=== PATIENT | male | born 1995 | race Caucasian/White ===

== ENCOUNTER 2017-12-31 19:55 | Observation (INO) ==
--- NOTE | 2017-12-31 20:38 | ED ---
HPI General Chief complaint: Headache Stated complaint: flu symp Time Seen by Provider: 12/31/17 20:06 History of Present Illness HPI narrative: 22-year-old male here with his girlfriend for evaluation of fever , headache, neck pain. Symptoms have been going on for about 3 days and has been gradually worsening. He reports that he took a leftover pain pill from previous hand surgery and currently has no pain. He states that earlier today his pain was 7 out of 10, describes a diffuse headache that is sharp, radiates down to his neck into his lower back. This is made worse with neck movements and is associated with photophobia. He was nauseous and had a couple episodes of vomiting yesterday. No cough. Denies IVDU. Related Data Home Medications Medication Instructions Recorded Confirmed amoxicillin-pot clavulanate 1 tab PO Q12H 12/31/17 12/31/17 [Augmentin] Allergies Allergy/AdvReac Type Severity Reaction Status Date / Time No Known Allergies Allergy Verified 12/31/17 20:16 Review of Systems ROS: all other systems reviewed are negative [facility] Medical History Medical History Finger fracture, left (Acute) Social History Social History Substance History: No History of Abuse and Past History Smoking Status: Light tobacco smoker Tobacco Type: Cigarettes How Often Do You Have a Drink Containing Alcohol: Monthly or less Recent Travel in [facility] within the Last 8 Weeks: No Recent Out of Country Travel within the Last 8 Weeks: No Immunization History Tetanus Immunization: <5 Years Tetanus Immunization Year if Known: 2014 Hx Influenza Vaccine This Season: No Exam Narrative Exam Narrative: GENERAL: Well-developed, well-nourished, awake, alert, keeps eyes closed, no apparent distress. SKIN: Focused skin assessment warm/dry. No rash. HEAD: Atraumatic. Normocephalic. EYES: Pupils equal, round, 3 mm, reactive to light. EOMI. No scleral icterus. No injection or drainage. ENT: No nasal bleeding or discharge. Mucous membranes pink and dry. NECK: Trachea midline. No JVD. No nuchal rigidity, however turning head from side to side causes pain. CARDIOVASCULAR: Regular rate and rhythm. No murmur appreciated. RESPIRATORY: No accessory muscle use. Clear to auscultation. Breath sounds equal bilaterally. GASTROINTESTINAL: Abdomen soft, non-tender, nondistended. Hepatic and splenic margins not palpable. MUSCULOSKELETAL: No obvious deformities. No clubbing. No cyanosis. No edema. NEUROLOGICAL: Awake and alert. No obvious cranial nerve deficits. Motor grossly within normal limits. Normal speech. PSYCHIATRIC: Appropriate mood and affect; insight and judgment normal. Procedures Lumbar Puncture Time Out Performed: Yes Patient Position: left lateral decubitus Skin Prep: Povidone-Iodine 1% Local anesthetic used: Lidocaine 1% Amount of anesthesia used (mL): 3 Spinal Needle Gauge: 20G Interspace Used: L4-L5 Opening Pressure (cmH20): 9 Fluid Initially Obtained: clear Complications: none Course Initial Documented Vital Signs Temperature 100.3 F H 12/31/17 19:57 Pulse Rate 90 12/31/17 19:57 Respiratory Rate 16 12/31/17 19:57 Blood Pressure 117/79 12/31/17 19:57 Pulse Oximetry 99 12/31/17 19:57 Last Documented Vital Signs Temperature 100.3 F H 12/31/17 19:57 Pulse Rate 90 12/31/17 20:12 Respiratory Rate 16 12/31/17 20:12 Blood Pressure 119/71 12/31/17 20:12 Pulse Oximetry 99 12/31/17 20:12 Medical Decision Making MDM Narrative Medical decision making narrative: Vital signs reviewed and show that the patient has a temp of 100.3 F. CBC and CMP are essentially unremarkable. Influenza is negative. Group A strep is negative. CT head shows no acute intracranial abnormality. Chest x-ray shows no acute disease. This is a 22-year-old male who presents with headache, fever, neck pain and stiffness that radiates down his entire spine. He adamantly denies IV drug use or history of. He does not have any respiratory symptoms and I do not have a clear source for his fever. Given fever of unknown origin with headache and neck pain/stiffness, I discussed with the patient and the patient's family that meningitis/encephalitis is on the differential diagnosis. Patient was consented for lumbar puncture and this was performed without complication. CSF is clear with an opening pressure of 9 mm of water. Samples of the CSF were sent to the lab for analysis. He was empirically started on Rocephin, vancomycin, and acyclovir and will be admitted for further treatment and evaluation. Case discussed with hospitalist Dr. Conley who will admit the patient to the hospitalist service. Medical Screen Exam Complete: Yes Emergency Medical Condition: Yes Differential Diagnosis Differential Diagnosis: Meningitis, encephalitis, flu/flulike illness, intracranial abnormality Lab Data Result diagrams: 12/31/17 20:30 12/31/17 20:30 Lab Results 12/31/17 12/31/17 12/31/17 Range/Units 20:30 20:30 20:30 WBC 6.0 (4.0-11.0) th/mm3 RBC 4.98 (4.50-5.90) mil/mm3 Hgb 16.0 (13.0-17.0) gm/dL Hct 45.2 (39.0-51.0) % MCV 90.8 (80.0-100.0) fL MCH 32.1 (27.0-34.0) pg MCHC 35.3 (32.0-36.0) % RDW 12.0 (11.6-17.2) % Plt Count 173 (150-450) th/mm3 MPV 9.1 (7.0-11.0) fL Neut % (Auto) 59.7 (16.0-70.0) % Lymph % (Auto) 26.9 (9.0-44.0) % [place] % (Auto) 12.6 H (0.0-8.0) % Eos % (Auto) 0.2 (0.0-4.0) % Baso % (Auto) 0.6 (0.0-2.0) % Neut # (Auto) 3.6 (1.8-7.7) th/mm3 Lymph # (Auto) 1.6 (1.0-4.8) th/mm3 [place] # (Auto) 0.8 (0.0-0.9) th/mm3 Eos # (Auto) 0.0 (0.0-0.4) th/mm3 Baso # (Auto) 0.0 (0.0-0.2) th/mm3 WBC Differential . Differential Comment Auto diff final PT 11.4 (9.8-11.6) sec INR 1.1 Ratio APTT 31.5 H (24.3-30.1) sec Sodium 137 (136-145) meq/L Potassium 3.7 (3.5-5.1) meq/L Chloride 101 (98-107) meq/L Carbon Dioxide 26.0 (21.0-32.0) meq/L Anion Gap 10 (5-15) meq/L BUN 10 (7-18) mg/dL Creatinine 1.08 (0.60-1.30) mg/dL Estimated GFR 84 L (>89) mL/min Random Glucose 104 (74-106) mg/dL Calcium 8.5 (8.5-10.1) mg/dL Total Bilirubin 0.4 (0.2-1.0) mg/dL AST 20 (15-37) U/L ALT 18 (12-78) U/L Alkaline Phosphatase 53 (45-117) U/L Total Protein 7.4 (6.4-8.2) g/dL Albumin 3.8 (3.4-5.0) g/dL Imaging Data Radiologist's impression: Chest X-Ray 12/31/17 20:12 CONCLUSION: No evidence of acute cardiopulmonary disease. Head CT 12/31/17 20:12 CONCLUSION: 1. Unremarkable noncontrast head CT. . Discharge Plan Discharge Disposition Patient Disposition: 30 Still Patient Discharge Condition Condition: Stable Discharge Details Diagnosis: Fever of unknown origin (FUO), Headache Physicians Team ED Provider: Hieu Molina Primary Care Provider: Primary Care JamesiKaren Rxs /Orders / Referrals /Forms Prescriptions: No Action amoxicillin-pot clavulanate [Augmentin] 875-125 mg Tablet 1 tab PO Q12H RF: 0 Status ED Status: Admitted Observation Patient
--- NOTE | 2017-12-31 20:44 | XR ---
EXAM DATE: 12/31/2017 8:12 PM EDT AGE/SEX: 22 years / Male INDICATIONS: Fever. CLINICAL DATA: This is the patient's initial encounter. Patient reports that signs and symptoms have been present for 2 days and indicates a pain score of 0/10. MEDICAL/SURGICAL HISTORY: None. None. COMPARISON: No prior exams available for comparison. FINDINGS: A single AP view of the chest demonstrates the lungs to be symmetrically aerated without evidence of mass, infiltrate or effusion. The cardiomediastinal contours are unremarkable. Osseous structures a re intact. CONCLUSION: No evidence of acute cardiopulmonary disease. Electronically signed by: Filiberto Pickens MD 12/31/2017 8:43 PM EDT
[2017-12-31 20:45] LABS: Baso % (Auto) 0.6 % (0.0-2.0); Eos % (Auto) 0.2 % (0.0-4.0); Hematocrit 45.2 % (39.0-51.0); Lymph # (Auto) 1.6 th/mm3 (1.0-4.8); Lymph % (Auto) 26.9 % (9.0-44.0); Mean Corpuscular HGB Conc 35.3 % (32.0-36.0); Mean Corpuscular Hemoglobin 32.1 pg (27.0-34.0); Mean Corpuscular Volume 90.8 fL (80.0-100.0); Mean Platelet Volume 9.1 fL (7.0-11.0); Mono # (Auto) 0.8 th/mm3 (0.0-0.9); Mono % (Auto) 12.6 % (0.0-8.0); Neut # (Auto) 3.6 th/mm3 (1.8-7.7); Neut % (Auto) 59.7 % (16.0-70.0); Platelet Count 173 th/mm3 (150-450); Red Blood Count 4.98 mil/mm3 (4.50-5.90)
--- NOTE | 2017-12-31 20:50 | CT ---
EXAM DATE: 12/31/2017 8:20 PM EDT AGE/SEX: 22 years / Male INDICATIONS: Headache. Neck and back pain. CLINICAL DATA: This is the patient's initial encounter. Patient reports that signs and symptoms have been present for 2 days and indicates a pain score of 4/10. MEDICAL/SURGICAL HISTORY: None. None. RADIATION DOSE: 56.35 CTDI (mGy) COMPARISON: No prior exams available for comparison. TECHNIQUE: CT of the head without contrast. Using automated exposure control and adjustment of the mA and/or kV according to patient size, radiation dose was kept as low as reasonably achievable to ob tain optimal diagnostic quality images. DICOM format image data is available electronically for revi ew and comparison. FINDINGS: Cerebrum: The ventricles are normal for age. No evidence of midline shift, mass lesion, hemorrhage or acute infarction. No extraaxial fluid collections are seen. Posterior Fossa: The cerebellum and brainstem are intact. The 4th ventricle is midline. The cerebe llopontine angle is unremarkable. Extracranial: The visualized portion of the orbits is intact. Skull: The calvaria is intact. No evidence of skull fracture. CONCLUSION: 1. Unremarkable noncontrast head CT. . Electronically signed by: Keith Wiggins MD 12/31/2017 8:48 PM EDT
[2017-12-31 20:57] LABS: Activated Partial Thrombo Time 31.5 sec (24.3-30.1); INR 1.1 Ratio; Prothrombin Time 11.4 sec (9.8-11.6)
[2017-12-31 21:07] LABS: Albumin 3.8 g/dL (3.4-5.0); Anion Gap 10 meq/L (5-15); Aspartate Aminotransferase 20 U/L (15-37); Blood Urea Nitrogen 10 mg/dL (7-18); Calcium 8.5 mg/dL (8.5-10.1); Chloride 101 meq/L (98-107); Glomerular Filtration Rate 84 mL/min (>89); Glucose,Random 104 mg/dL (74-106); Potassium 3.7 meq/L (3.5-5.1); Sodium 137 meq/L (136-145)
[2017-12-31] MEDS ORDERED: Morphine Inj 4 MG/ML Vial IV.PUSH ONE (21:12)
[2017-12-31 21:13] LABS: Alanine Aminotransferase 18 U/L (12-78); Alkaline Phosphatase 53 U/L (45-117); Total Protein 7.4 g/dL (6.4-8.2)
[2017-12-31] MEDS ORDERED: SODIUM CHLOR 0.9% IV.SIG ONE (21:58)
[2017-12-31] MEDS ORDERED: ACYCLOVIR IV.SIG ONE (21:58)
[2017-12-31] MEDS ORDERED: Ketorolac Inj 30 MG/ML (IVP) Vial IV.PUSH ONE (21:58)
[2017-12-31] MEDS ORDERED: Sod Chloride 0.9% Inj 1,000 ML IV.SIG SCH (22:00)
[2017-12-31] MEDS ORDERED: Vancomycin Inj 1 GM/200 ML PIGGYBACK IV.SIG SCH (22:00)
[2017-12-31 23:24] LABS: Total Protein,CSF 44.2 mg/dL (15.0-45.0)
[2017-12-31] MEDS ORDERED: Vancomycin Consult Pharmacy OTHER PRN (23:31)
[2017-12-31] MEDS ORDERED: Acetaminophen 325 MG Tablet PO PRN (23:32)
[2017-12-31] MEDS ORDERED: Bisacodyl 10 MG Supp RECTAL PRN (23:32)
--- NOTE | 2017-12-31 23:37 | P.HP ---
History of Present Illness Service: [facility] Primary Care Physician: No Primary Care Physician History of Present Illness: 22-year-old male with no significant past medical history presents to the emergency department for evaluation of headache, neck stiffness, and fever/ chills. The patient reports his symptoms started on Thursday and have progressively worsened. He complains of pain all over his spine and an exquisitely stiff neck that hurts to turn to the side or talk. He had a fever earlier today of 100.0. He denies any visual changes. Reports one episode of emesis last night. No chest pain or shortness of breath. No abdominal pain. Review of Systems All other systems reviewed negative except as stated in HPI PMFSH - History History Provided By: Patient - Medical History Medical History: Medical History (Last Reviewed 12/31/17 @ 23:34 by Rosalinda Conley MD) Finger fracture, left - Surgical History Surgical History: Surgical History (Last Updated 12/31/17 @ 23:35 by Rosalinda Conley MD) Status post wrist surgery - Family History Family History: Family History (Last Updated 12/31/17 @ 23:35 by Rosalinda Conley MD) Other Family history normal - Tobacco History Tobacco Use In Past 30 Days: Yes Smoking Status: Light tobacco smoker Tobacco Type: Cigarettes - Alcohol History How Often Do You Have a Drink Containing Alcohol: Monthly or less - Substance Use History Substance History: No History of Abuse, Past History - Travel History Recent Travel in the [place] Within the Last 8 Weeks: No Recent Travel Out of the Country Within the Last 8 Weeks: No - Immunization History Tetanus Immunization: <5 Years Tetanus Immunization Year if Known: 2014 Hx Influenza Vaccine This Season: No Medications and Allergies Active Medications: Active Medications Sodium Chloride (Ns Inj) 1,000 mls @ 0 mls/hr IV.SIG BOLUS KATHIA Last Admin: 12/31/17 22:21 Dose: 999 mls/hr Vancomycin/Sodium Chloride (Vancomycin Inj) 1 gm in 200 mls @ 200 mls/hr IV.SIG MEDICAL IMAGING SPECIALIST KATHIA Sodium Chloride (Ns Flush) 2 ml IV.FLUSH PRN PRN PRN Reason: FLUSH AFTER USING IV ACCESS Allergies Allergy/AdvReac Type Severity Reaction Status Date / Time No Known Allergies Allergy Verified 12/31/17 20:16 Home Medications Medication Instructions Recorded Confirmed Type amoxicillin-pot clavulanate 1 tab PO Q12H 12/31/17 12/31/17 History [Augmentin] Exam Vital signs: Vital Signs 12/31/17 19:57 12/31/17 20:12 12/31/17 22:51 Temperature 100.3 F H Pulse Rate 90 90 Respiratory Rate 16 16 20 Blood Pressure 117/79 119/71 Pulse Oximetry 99 99 12/31/17 22:52 Temperature Pulse Rate Respiratory Rate 20 Blood Pressure Pulse Oximetry Intake & Output 12/31/17 12/31/17 01/01/18 06:59 18:59 06:59 Intake Total 100 / 100 Balance 100 / 100 Weight 63.503 kg Intake: IV 100 / 100 Rocephin Inj 1,000 MG In NS Inj 100 / 100 100 ML @ 200 mls/hr IV.SIG ONCE ONE Rx#:[id number] Narrative: Gen.: No acute distress Head: Normocephalic. Atraumatic. EENT: Pupils equal round and reactive to light. Nose without drainage. Airway intact. Throat without injection. Positive nuchal rigidity. Cardiovascular: Regular rate and rhythm. No murmurs, rubs or gallops. Respiratory: Lungs clear to auscultation bilaterally. No wheezes or rhonchi. Abdomen: Soft, nontender, nondistended. No peritoneal signs. Musculoskeletal: No gross deformities. No edema. Skin: No obvious rashes or erythema. Neuro: Sensory and motor grossly intact. Cranial nerves II through XII grossly intact. Results - Labs CBC & Chem 7: 12/31/17 20:30 12/31/17 20:30 Labs: Laboratory Results - last 24 hr 12/31/17 12/31/17 12/31/17 20:30 20:30 20:30 WBC 6.0 RBC 4.98 Hgb 16.0 Hct 45.2 MCV 90.8 MCH 32.1 MCHC 35.3 RDW 12.0 Plt Count 173 MPV 9.1 Neut % (Auto) 59.7 Lymph % (Auto) 26.9 [place] % (Auto) 12.6 H Eos % (Auto) 0.2 Baso % (Auto) 0.6 Neut # (Auto) 3.6 Lymph # (Auto) 1.6 [place] # (Auto) 0.8 Eos # (Auto) 0.0 Baso # (Auto) 0.0 WBC Differential . Differential Comment Auto diff final PT 11.4 INR 1.1 APTT 31.5 H Sodium 137 Potassium 3.7 Chloride 101 Carbon Dioxide 26.0 Anion Gap 10 BUN 10 Creatinine 1.08 Estimated GFR 84 L Random Glucose 104 Calcium 8.5 Total Bilirubin 0.4 AST 20 ALT 18 Alkaline Phosphatase 53 Total Protein 7.4 Albumin 3.8 CSF Chloride CSF Glucose CSF Lactic Acid CSF Total Protein 12/31/17 12/31/17 12/31/17 22:30 22:30 22:30 WBC RBC Hgb Hct MCV MCH MCHC RDW Plt Count MPV Neut % (Auto) Lymph % (Auto) [place] % (Auto) Eos % (Auto) Baso % (Auto) Neut # (Auto) Lymph # (Auto) [place] # (Auto) Eos # (Auto) Baso # (Auto) WBC Differential Differential Comment PT INR APTT Sodium Potassium Chloride Carbon Dioxide Anion Gap BUN Creatinine Estimated GFR Random Glucose Calcium Total Bilirubin AST ALT Alkaline Phosphatase Total Protein Albumin CSF Chloride Cancelled 122 CSF Glucose 62 CSF Lactic Acid 1.5 Cancelled CSF Total Protein 44.2 - Imaging Impressions Chest X-Ray 12/31/17 20:12 CONCLUSION: No evidence of acute cardiopulmonary disease. Head CT 12/31/17 20:12 CONCLUSION: 1. Unremarkable noncontrast head CT. . Caprini VTE Risk Assessment Caprini VTE Risk Assessment: No/Low Risk (score <= 1) Caprini Risk Assessment Model: Point Value = 1 Point Value = 2 Point Value = 3 Point Value = 5 Age 41-60 Minor surgery BMI > 25 kg/m2 Swollen legs Varicose veins or History of unexplained or recurrent spontaneous Oral contraceptives or hormone replacement Sepsis (< 1 month) Serious lung disease, including pneumonia (< 1 month) Abnormal pulmonary function Acute myocardial infarction Congestive heart failure (< 1 month) History of inflammatory bowel disease Medical patient at bed rest Age 61-74 Arthroscopic surgery Major open surgery (> 45 min) Laparoscopic surgery (> 45 min) Malignancy Confined to bed (> 72 hours) Immobilizing plaster cast Central venous access Age >= 75 History of VTE Family history of VTE Factor V Leiden Prothrombin [id number] Lupus anticoagulant Anticardiolipin antibodies Elevated serum homocysteine Heparin-induced thrombocytopenia Other congenital or acquired thrombophilia Stroke (< 1 month) Elective arthroplasty Hip, pelvis, or leg fracture Acute spinal cord injury (< 1 month) Prophylaxis Regimen: Total Risk Factor Score Risk Level Prophylaxis Regimen 0-1 Low Early ambulation 2 Moderate Order ONE of the following: *Sequential Compression Device (SCD) *Heparin 5000 units SQ BID 3-4 Higher Order ONE of the following medications: *Heparin 5000 units SQ TID *Enoxaparin/Lovenox 40 mg SQ daily (WT < 150 kg, CrCl > 30 mL/min) *Enoxaparin/Lovenox 30 mg SQ daily (WT < 150 kg, CrCl > 10-29 mL/min) *Enoxaparin/Lovenox 30 mg SQ BID (WT < 150 kg, CrCl > 30 mL/min) AND/OR *Sequential Compression Device (SCD) 5 or more Highest Order ONE of the following medications: *Heparin 5000 units SQ TID (Preferred with Epidurals) *Enoxaparin/Lovenox 40 mg SQ daily (WT < 150 kg, CrCl > 30 mL/min) *Enoxaparin/Lovenox 30 mg SQ daily (WT < 150 kg, CrCl > 10-29 mL/min) *Enoxaparin/Lovenox 30 mg SQ BID (WT < 150 kg, CrCl > 30 mL/min) AND *Sequential Compression Device (SCD) Assessment and Plan - Plan Assessment/plan: 1. Headache/nuchal rigidity Concern for meningitis LP pending Vancomycin/Rocephin/acyclovir Morphine for pain FEN Regular diet Electrolytes: As needed NS at 100 cc/hour
[2017-12-31] MEDS: Sod Chloride 0.9% Inj 1,000 ML IV.CONT SCH (23:42)
[2017-12-31 23:45] LABS: RBC on Tube 1 120 /mm3
[2017-12-31 23:46] LABS: Lymphocytes, CSF 73 %; Monocytes,CSF 27 %; Neutrophils,CSF 0 %; RBC on Tube 4 69 /mm3
[2018-01-01] MEDS ORDERED: Vancomycin Inj 1,250 MG in Sodium Chlor 0.9% Inj 250 ML IV.SIG SCH (01:00)
[2018-01-01] MEDS ORDERED: ACYCLOVIR IV.SIG ONE (07:00)
[2018-01-01] MEDS ORDERED: SODIUM CHLOR 0.9% IV.SIG ONE (07:00)
[2018-01-01 08:07] LABS: Anion Gap 8 meq/L (5-15); Blood Urea Nitrogen 11 mg/dL (7-18); Calcium 7.8 mg/dL (8.5-10.1); Carbon Dioxide 25.9 meq/L (21.0-32.0); Chloride 107 meq/L (98-107); Glomerular Filtration Rate Greater Than 89 mL/min (>89); Glucose,Random 79 mg/dL (74-106); Potassium 3.8 meq/L (3.5-5.1); Sodium 141 meq/L (136-145)
[2018-01-01 08:17] LABS: Baso % (Auto) 0.7 % (0.0-2.0); Eos % (Auto) 0.5 % (0.0-4.0); Hematocrit 38.6 % (39.0-51.0); Lymph # (Auto) 1.5 th/mm3 (1.0-4.8); Lymph % (Auto) 26.1 % (9.0-44.0); Mean Corpuscular Hemoglobin 32.8 pg (27.0-34.0); Mean Corpuscular Volume 90.5 fL (80.0-100.0); Mean Platelet Volume 9.8 fL (7.0-11.0); Mono # (Auto) 0.8 th/mm3 (0.0-0.9); Mono % (Auto) 14.7 % (0.0-8.0); Neut # (Auto) 3.2 th/mm3 (1.8-7.7); Platelet Count 159 th/mm3 (150-450); Red Blood Count 4.27 mil/mm3 (4.50-5.90); White Blood Count 5.6 th/mm3 (4.0-11.0)
[2018-01-01 08:20] LABS: Mean Corpuscular HGB Conc 36.3 % (32.0-36.0)
[2018-01-01] MEDS: Sod Chloride 0.9% Inj 1,000 ML IV.CONT SCH ×3 (08:33→20:20)
[2018-01-01] MEDS: Senna/Docusate Sodium 8.6/50 MG Tablet PO SCH ×2 (08:33→21:20)
[2018-01-01 09:26] LABS: Monocytes 10 % (0-8)
[2018-01-01 09:27] LABS: Lymphocytes 28 % (9-44); Platelet Estimate Normal (Normal); Platelet Morphology Normal (Normal)
--- NOTE | 2018-01-01 09:51 | P.PN ---
Subjective Interval history: Follow-up for headache, neck pain, body aches, concern for meningitis. Patient reports mild improvement compared to yesterday, however still with mild diffuse global headache, and neck tightness, with some pain at lumbar puncture injection site. He denies any fevers or chills overnight although he does feel warm. Denies any chest pain, cough, or shortness of breath. He reports a mild sore throat, improving. Denies any abdominal pain, nausea/vomiting, or diarrhea. He has no other medical complaints at this time. Denies any sick contacts. Denies any recent travel. Physical Exam Vital signs: Vital Signs 12/31/17 19:57 12/31/17 20:12 12/31/17 22:51 Temperature 100.3 F H Pulse Rate 90 90 Respiratory Rate 16 16 20 Blood Pressure 117/79 119/71 Pulse Oximetry 99 99 12/31/17 22:52 01/01/18 00:00 01/01/18 04:00 Temperature 98.7 F 98.5 F Pulse Rate 88 73 Respiratory Rate 20 20 16 Blood Pressure 136/72 105/58 L Pulse Oximetry 99 01/01/18 08:00 Temperature 98.1 F Pulse Rate 71 Respiratory Rate 22 Blood Pressure 106/57 L Pulse Oximetry 98 Intake & Output 12/31/17 01/01/18 01/01/18 18:59 06:59 18:59 Intake Total 1472.5 / 1472.5 1012.7 / 1012.7 Balance 1472.5 / 1472.5 1012.7 / 1012.7 Weight 63.503 kg Intake: IV 1472.5 / 1472.5 1012.7 / 1012.7 NS Inj 1,000 ML @ 100 mls/hr IV 900 / 900 .CONT .Q10H [facility] Rx#:[id number] Zovirax Inj 635 MG In NS Inj 110 / 110 112.7 / 112.7 100 ML @ 112.7 mls/hr IV.SIG ONCE ONE Rx#:[id number] NS Inj 1,000 ML @ Wide Open IV. 1000 / 1000 SIG BOLUS [facility] Rx#:[id number] Vancomycin Inj 1,250 MG In NS 262.5 / 262.5 Inj 250 ML @ 250 mls/hr IV.SIG DAILY@0100 [facility] Rx#:[id number] Rocephin Inj 1,000 MG In NS Inj 100 / 100 100 ML @ 200 mls/hr IV.SIG ONCE ONE Rx#:[id number] Other: # Voids 0 Narrative: GENERAL: Well-nourished, well-developed patient in [facility]. SKIN: Warm and dry. No rash. HEENT: Normocephalic. Atraumatic. Pupils equal and round. Mucous membranes pink and moist. NECK: Cervical paraspinous muscles slightly tender to palpation, with positive Brudzinski's and nuchal rigidity. CARDIOVASCULAR: Regular rate and rhythm. No murmur appreciated. RESPIRATORY: No accessory muscle use. Clear to auscultation. Breath sounds equal bilaterally. GASTROINTESTINAL: Abdomen soft, non-tender, nondistended. Normoactive bowel sounds x4. MUSCULOSKELETAL: No obvious deformities. Extremities without clubbing, cyanosis , or edema. NEUROLOGICAL: Awake and alert. No obvious cranial nerve deficits. Motor grossly within normal limits. Moving all extremities spontaneously. Normal speech. PSYCHIATRIC: Appropriate mood and affect; insight and judgment normal. Results - Labs CBC & Chem 7: 01/01/18 06:14 01/01/18 06:14 Laboratory Results - last 24 hr 12/31/17 12/31/17 12/31/17 20:30 20:30 20:30 WBC 6.0 RBC 4.98 Hgb 16.0 Hct 45.2 MCV 90.8 MCH 32.1 MCHC 35.3 RDW 12.0 Plt Count 173 MPV 9.1 Prelim Diff (Auto) Neut % (Auto) 59.7 Lymph % (Auto) 26.9 [place] % (Auto) 12.6 H Eos % (Auto) 0.2 Baso % (Auto) 0.6 Neut # (Auto) 3.6 Lymph # (Auto) 1.6 [place] # (Auto) 0.8 Eos # (Auto) 0.0 Baso # (Auto) 0.0 WBC Differential . Seg Neuts % (Manual) Band Neuts % (Manual) Lymphocytes % (Manual) Monocytes % (Manual) Abs Neuts (Manual) Differential Comment Auto diff final Platelet Estimate Platelet Morphology PT 11.4 INR 1.1 APTT 31.5 H Sodium 137 Potassium 3.7 Chloride 101 Carbon Dioxide 26.0 Anion Gap 10 BUN 10 Creatinine 1.08 Estimated GFR 84 L Random Glucose 104 Calcium 8.5 Total Bilirubin 0.4 AST 20 ALT 18 Alkaline Phosphatase 53 Total Protein 7.4 Albumin 3.8 CSF Volume (1) CSF Supernat Color (1) CSF Gross Blood (1) CSF WBC (1) CSF RBC (1) CSF Volume (2) CSF Supernat Color (2) CSF Gross Blood (2) CSF Volume (3) CSF Supernat Color (3) CSF Gross Blood (3) CSF Volume (4) CSF Supernat Color (4) CSF Gross Blood (4) CSF WBC (4) CSF RBC (4) CSF Neutrophils % CSF Lymphocytes % CSF Monocytes % CSF Chloride CSF Glucose CSF Lactic Acid CSF Total Protein CSF N.mening B/E.coli K1 CSF N.meningitidis A/Y Bacterial Ag Source H.influenzae Type B Ag N. meningitidis C/W 135 Group B Strep Antigen S. pneumoniae Antigen 12/31/17 12/31/17 12/31/17 22:30 22:30 22:30 WBC RBC Hgb Hct MCV MCH MCHC RDW Plt Count MPV Prelim Diff (Auto) Neut % (Auto) Lymph % (Auto) [place] % (Auto) Eos % (Auto) Baso % (Auto) Neut # (Auto) Lymph # (Auto) [place] # (Auto) Eos # (Auto) Baso # (Auto) WBC Differential Seg Neuts % (Manual) Band Neuts % (Manual) Lymphocytes % (Manual) Monocytes % (Manual) Abs Neuts (Manual) Differential Comment Platelet Estimate Platelet Morphology PT INR APTT Sodium Potassium Chloride Carbon Dioxide Anion Gap BUN Creatinine Estimated GFR Random Glucose Calcium Total Bilirubin AST ALT Alkaline Phosphatase Total Protein Albumin CSF Volume (1) 1.1 CSF Supernat Color (1) Clear CSF Gross Blood (1) Trace A CSF WBC (1) 9 CSF RBC (1) 120 H CSF Volume (2) 0.8 CSF Supernat Color (2) Clear CSF Gross Blood (2) Trace A CSF Volume (3) 0.7 CSF Supernat Color (3) Clear CSF Gross Blood (3) Trace A CSF Volume (4) 0.9 CSF Supernat Color (4) Clear CSF Gross Blood (4) Trace A CSF WBC (4) 9 CSF RBC (4) 69 H CSF Neutrophils % 0 CSF Lymphocytes % 73 CSF Monocytes % 27 CSF Chloride Cancelled CSF Glucose CSF Lactic Acid CSF Total Protein CSF N.mening B/E.coli K1 Cancelled CSF N.meningitidis A/Y Cancelled Bacterial Ag Source Cancelled H.influenzae Type B Ag Cancelled N. meningitidis C/W 135 Cancelled Group B Strep Antigen Cancelled S. pneumoniae Antigen Cancelled 12/31/17 12/31/17 01/01/18 22:30 22:30 06:14 WBC 5.6 RBC 4.27 L Hgb 14.0 D Hct 38.6 L MCV 90.5 MCH 32.8 MCHC 36.3 H RDW 12.0 Plt Count 159 MPV 9.8 Prelim Diff (Auto) Slide review pending Neut % (Auto) 58.0 Lymph % (Auto) 26.1 [place] % (Auto) 14.7 H Eos % (Auto) 0.5 Baso % (Auto) 0.7 Neut # (Auto) 3.2 Lymph # (Auto) 1.5 [place] # (Auto) 0.8 Eos # (Auto) 0.0 Baso # (Auto) 0.0 WBC Differential Manual diff final Seg Neuts % (Manual) 39 Band Neuts % (Manual) 23 H Lymphocytes % (Manual) 28 Monocytes % (Manual) 10 H Abs Neuts (Manual) 3.5 Differential Comment . Platelet Estimate Normal Platelet Morphology Normal PT INR APTT Sodium Potassium Chloride Carbon Dioxide Anion Gap BUN Creatinine Estimated GFR Random Glucose Calcium Total Bilirubin AST ALT Alkaline Phosphatase Total Protein Albumin CSF Volume (1) CSF Supernat Color (1) CSF Gross Blood (1) CSF WBC (1) CSF RBC (1) CSF Volume (2) CSF Supernat Color (2) CSF Gross Blood (2) CSF Volume (3) CSF Supernat Color (3) CSF Gross Blood (3) CSF Volume (4) CSF Supernat Color (4) CSF Gross Blood (4) CSF WBC (4) CSF RBC (4) CSF Neutrophils % CSF Lymphocytes % CSF Monocytes % CSF Chloride 122 CSF Glucose 62 CSF Lactic Acid 1.5 Cancelled CSF Total Protein 44.2 CSF N.mening B/E.coli K1 CSF N.meningitidis A/Y Bacterial Ag Source H.influenzae Type B Ag N. meningitidis C/W 135 Group B Strep Antigen S. pneumoniae Antigen 01/01/18 06:14 WBC RBC Hgb Hct MCV MCH MCHC RDW Plt Count MPV Prelim Diff (Auto) Neut % (Auto) Lymph % (Auto) [place] % (Auto) Eos % (Auto) Baso % (Auto) Neut # (Auto) Lymph # (Auto) [place] # (Auto) Eos # (Auto) Baso # (Auto) WBC Differential Seg Neuts % (Manual) Band Neuts % (Manual) Lymphocytes % (Manual) Monocytes % (Manual) Abs Neuts (Manual) Differential Comment Platelet Estimate Platelet Morphology PT INR APTT Sodium 141 Potassium 3.8 Chloride 107 Carbon Dioxide 25.9 Anion Gap 8 BUN 11 Creatinine 1.00 Estimated GFR Greater than 89 Random Glucose 79 Calcium 7.8 L Total Bilirubin AST ALT Alkaline Phosphatase Total Protein Albumin CSF Volume (1) CSF Supernat Color (1) CSF Gross Blood (1) CSF WBC (1) CSF RBC (1) CSF Volume (2) CSF Supernat Color (2) CSF Gross Blood (2) CSF Volume (3) CSF Supernat Color (3) CSF Gross Blood (3) CSF Volume (4) CSF Supernat Color (4) CSF Gross Blood (4) CSF WBC (4) CSF RBC (4) CSF Neutrophils % CSF Lymphocytes % CSF Monocytes % CSF Chloride CSF Glucose CSF Lactic Acid CSF Total Protein CSF N.mening B/E.coli K1 CSF N.meningitidis A/Y Bacterial Ag Source H.influenzae Type B Ag N. meningitidis C/W 135 Group B Strep Antigen S. pneumoniae Antigen Microbiology 12/31/17 22:30 Lumbar Puncture Gram Stain - Final 12/31/17 22:30 Lumbar Puncture CSF Culture - Preliminary No growth. 12/31/17 20:30 Throat Group A Streptococcus Screen ([facility]) - Final 12/31/17 20:30 Nasal Wash Influenza Types A,B Antigen - Final Negative for FLU A and B antigen Infection due to influenza A or B cannot be ruled out since the antigen present in the sample may be below the detection limit of the test. - Imaging Impressions Chest X-Ray 12/31/17 20:12 CONCLUSION: No evidence of acute cardiopulmonary disease. Head CT 12/31/17 20:12 CONCLUSION: 1. Unremarkable noncontrast head CT. . - Procedures 12/31/17lumbar puncture performed by ER physician Assessment and Plan - Plan 22-year-old male with no significant past medical history presents to the emergency department for evaluation of headache, neck stiffness, and fever/ chills. Headache/nuchal rigidity/body aches/fevers: Concern for meningitis -Head CT 12/31 reviewed and unremarkable -Status post lumbar puncture in the ED 12/31 -CSF studies so far are unremarkable, await cultures -Continue empiric IV Rocephin/vancomycin/acyclovir -Blood cultures with no growth so far -Strep screen and influenza negative -Supportive treatment with IVF, antiemetics, IV morphine as needed -Monitor CBC -Check CPK and CRP DVT prophylaxis: Teds/SCDs; avoid chemical prophylaxis with recent LP Discharge Planning: Await CSF and blood cultures. Discharge pending further clinical improvement.
[2018-01-01] MEDS: Morphine Inj 4 MG/ML Vial IV.PUSH PRN (09:57)
[2018-01-01] MEDS: Vancomycin Inj 1,250 MG in Sodium Chlor 0.9% Inj 250 ML IV.SIG SCH (12:40)
[2018-01-01] MEDS: ACYCLOVIR IV.SIG SCH (17:24)
[2018-01-01] MEDS: SODIUM CHLOR 0.9% IV.SIG SCH (17:24)
[2018-01-01 17:43] LABS: C-Reactive Protein 8.3 mg/dL (0.00-0.30)
[2018-01-02] MEDS: Vancomycin Inj 1,250 MG in Sodium Chlor 0.9% Inj 250 ML IV.SIG SCH ×4 (01:34→23:40)
[2018-01-02] MEDS: SODIUM CHLOR 0.9% IV.SIG SCH ×3 (03:44→19:24)
[2018-01-02] MEDS: ACYCLOVIR IV.SIG SCH ×3 (03:44→19:24)
[2018-01-02] MEDS: Sod Chloride 0.9% Inj 1,000 ML IV.CONT SCH ×2 (07:46→17:01)
[2018-01-02] MEDS: Senna/Docusate Sodium 8.6/50 MG Tablet PO SCH ×2 (08:32→21:28)
[2018-01-02 08:46] LABS: Baso % (Auto) 0.9 % (0.0-2.0); Eos # (Auto) 0.2 th/mm3 (0.0-0.4); Eos % (Auto) 3.3 % (0.0-4.0); Hematocrit 40.8 % (39.0-51.0); Hemoglobin 14.2 gm/dL (13.0-17.0); Lymph # (Auto) 1.2 th/mm3 (1.0-4.8); Lymph % (Auto) 25.5 % (9.0-44.0); Mean Corpuscular HGB Conc 34.7 % (32.0-36.0); Mean Corpuscular Volume 92.1 fL (80.0-100.0); Mean Platelet Volume 8.9 fL (7.0-11.0); Mono # (Auto) 0.6 th/mm3 (0.0-0.9); Mono % (Auto) 11.8 % (0.0-8.0); Neut # (Auto) 2.8 th/mm3 (1.8-7.7); Neut % (Auto) 58.5 % (16.0-70.0); Platelet Count 180 th/mm3 (150-450); Red Blood Count 4.43 mil/mm3 (4.50-5.90); Red Cell Distribution Width 12.2 % (11.6-17.2); White Blood Count 4.8 th/mm3 (4.0-11.0)
[2018-01-02 09:28] LABS: Anion Gap 11 meq/L (5-15); Blood Urea Nitrogen 7 mg/dL (7-18); Carbon Dioxide 24.9 meq/L (21.0-32.0); Chloride 107 meq/L (98-107); Glomerular Filtration Rate Greater Than 89 mL/min (>89); Glucose,Random 72 mg/dL (74-106); Potassium 3.8 meq/L (3.5-5.1); Sodium 143 meq/L (136-145)
--- NOTE | 2018-01-02 09:58 | P.PN ---
Subjective Interval history: Follow-up for headache, neck/back pain, body aches, concern for meningitis. Patient reports feeling much better today. He states his headache has resolved. He states his neck is still a little sore and stiff. He also reports mid back pain on the spine without radiation. He denies any fevers or chills. He is tolerating oral intake. Denies any nausea/vomiting, abdominal pain, or diarrhea. He has been ambulating without difficulty. Denies any urinary/bowel incontinence. He wants to go home. Discussed with his mother at bedside. Physical Exam Vital signs: Vital Signs 01/01/18 12:00 01/01/18 16:00 01/01/18 19:33 Temperature 98.2 F 98.6 F 99.4 F Pulse Rate 62 73 79 Respiratory Rate 22 20 18 Blood Pressure 116/58 L 113/63 117/61 Pulse Oximetry 96 99 97 01/02/18 00:00 01/02/18 04:41 01/02/18 07:55 Temperature 98.6 F 98.7 F 98.3 F Pulse Rate 68 81 73 Respiratory Rate 16 16 16 Blood Pressure 114/59 L 129/86 115/58 L Pulse Oximetry 98 97 99 Intake & Output 01/01/18 01/02/18 01/02/18 18:59 06:59 18:59 Intake Total 2495.4 / 2495.4 2655.2 / 2655.2 Balance 2495.4 / 2495.4 2655.2 / 2655.2 Weight 63.503 kg Intake: IV 1775.4 / 1775.4 2175.2 / 2175.2 NS Inj 1,000 ML @ 100 mls/hr IV 1200 / 1200 1700 / 1700 .CONT .Q10H [facility] Rx#:[id number] Zovirax Inj 635 MG In NS Inj 225.4 / 225.4 112.7 / 112.7 100 ML @ 112.7 mls/hr IV.SIG Q8H [facility] Rx#:[id number] Vancomycin Inj 1,250 MG In NS 250 / 250 262.5 / 262.5 Inj 250 ML @ 250 mls/hr IV.SIG Q12H [facility] Rx#:[id number] Rocephin Inj 2,000 MG In NS Inj 100 / 100 100 / 100 100 ML @ 200 mls/hr IV.SIG Q12H [facility] Rx#:[id number] Oral 720 / 720 480 / 480 Other: # Voids 2 1 Date of Last Bowel Movement 12/31/17 01/01/18 01/01/18 Narrative: GENERAL: Well-nourished, well-developed young male patient in [facility]. SKIN: Warm and dry. No rash. HEENT: Normocephalic. Atraumatic. Pupils equal and round. Mucous membranes pink and moist. NECK: Cervical paraspinous muscles slightly tender to palpation, with +nuchal rigidity, overall improved. CARDIOVASCULAR: Regular rate and rhythm. No murmur appreciated. RESPIRATORY: No accessory muscle use. Clear to auscultation. Breath sounds equal bilaterally. GASTROINTESTINAL: Abdomen soft, non-tender, nondistended. Normoactive bowel sounds x4. MUSCULOSKELETAL: No obvious deformities. Extremities without clubbing, cyanosis , or edema. Lower thoracic/upper lumbar region approximately 6 inches above lumbar puncture site with bony point tenderness to palpation, paraspinous muscles nontender, no overlying erythema/edema. NEUROLOGICAL: Awake and alert. No obvious cranial nerve deficits. Motor grossly within normal limits. Moving all extremities spontaneously. Normal speech. PSYCHIATRIC: Appropriate mood and affect; insight and judgment normal. Results - Labs CBC & Chem 7: 01/02/18 08:35 01/02/18 08:35 Laboratory Results - last 24 hr 01/01/18 01/02/18 01/02/18 06:14 08:35 08:35 WBC 4.8 RBC 4.43 L Hgb 14.2 Hct 40.8 MCV 92.1 MCH 32.0 MCHC 34.7 RDW 12.2 Plt Count 180 MPV 8.9 Neut % (Auto) 58.5 Lymph % (Auto) 25.5 [place] % (Auto) 11.8 H Eos % (Auto) 3.3 Baso % (Auto) 0.9 Neut # (Auto) 2.8 Lymph # (Auto) 1.2 [place] # (Auto) 0.6 Eos # (Auto) 0.2 Baso # (Auto) 0.0 WBC Differential . Differential Comment Auto diff final Sodium 143 Potassium 3.8 Chloride 107 Carbon Dioxide 24.9 Anion Gap 11 BUN 7 Creatinine 0.90 Estimated GFR Greater than 89 Random Glucose 72 L Calcium 8.0 L Total Creatine Kinase 76 C-Reactive Protein 8.30 H Microbiology 12/31/17 22:30 Lumbar Puncture Gram Stain - Final 12/31/17 22:30 Lumbar Puncture CSF Culture - Preliminary No growth in 24 hours 12/31/17 22:30 Cerebral Spinal Fluid - Lumbar Puncture Acid Fast Bacilli Smear - Final No acid fast bacilli seen 12/31/17 22:30 Cerebral Spinal Fluid - Lumbar Puncture Fungal Smear - Final No fungal elements seen 12/31/17 20:30 Throat Group A Streptococcus Screen/Cult - Preliminary No Beta Streptococci isolated at 24 hours 12/31/17 22:00 Blood - Peripheral Aerobic Blood Culture - Preliminary No growth in 1 day 12/31/17 22:00 Blood - Peripheral Anaerobic Blood Culture - Preliminary No growth in 1 day 12/31/17 22:05 Blood - Peripheral Aerobic Blood Culture - Preliminary No growth in 1 day 12/31/17 22:05 Blood - Peripheral Anaerobic Blood Culture - Preliminary No growth in 1 day - Imaging Chest X-Ray 12/31/17 20:12 CONCLUSION: No evidence of acute cardiopulmonary disease. Head CT 12/31/17 20:12 CONCLUSION: 1. Unremarkable noncontrast head CT. . - Procedures 12/31/17lumbar puncture performed by ER physician Assessment and Plan - Plan 22-year-old male with no significant past medical history presents to the emergency department for evaluation of headache, neck stiffness, and fever/ chills. Headache/nuchal rigidity/body aches/fevers: Concern for meningitis -Head CT 12/31 reviewed and unremarkable -Status post lumbar puncture in the ED 12/31 -CSF studies/cultures so far are unremarkable -Continue empiric IV Rocephin/vancomycin/acyclovir -Blood cultures with no growth so far -Strep screen and influenza negative -Supportive treatment with IVF, antiemetics, IV morphine as needed -Monitor CBC -CPK wnl and CRP mildly elevated at 8.3 -Patient with bony point tenderness at lower thoracic/upper lumbar region, will check thoracic/lumbar spine MRI -Patient has remained afebrile, CBC improved, no signs of sepsis, symptoms much improved -1300hrs update: Thoracic/Lumbar spine MRI showed Enlargement of the epidural space with enhancement and heterogeneity raising the possibility of phlegmon is change. Inflammatory/infectious etiologies could be considered. Meningitis could be considered. No focal abscess is seen. -Will consult infectious disease DVT prophylaxis: Teds/SCDs; avoid chemical prophylaxis with recent LP Discharge Planning: Await infectious disease evaluation.
[2018-01-02] MEDS ORDERED: Pharmacy Ordered Lab Info OTHER ONE (11:45)
--- NOTE | 2018-01-02 13:05 | MR ---
EXAM DATE: 01/02/2018 10:58 AM EDT AGE/SEX: 22 years / Male INDICATIONS: Abscess. Fever with spinal tenderness. CLINICAL DATA: This is the patient's initial encounter. Patient reports that signs and symptoms have been present for 2 days and indicates a pain score of 4/10. MEDICAL/SURGICAL HISTORY: None. . Wrist surgery. COMPARISON: . TECHNIQUE: Multiplanar, multisequence MRI examination of the lumbar spine was performed without and with 6cc ml Gadavist (gadobutrol) contrast as a single exam dose. FINDINGS: The most caudal-appearing lumbar vertebra is numbered as L5. Vertebra: Homogeneous signal. Normal alignment. Conus: Normal level and configuration. The epidural space, especially posteriorly, appears prominent throughout the thoracic and lumbar spine. It appears somewhat heterogeneous. It demonstrates diffuse enhancement. A focal fluid collection/abscess in the epidural space is not seen. The disc. Moderate narrowing of the thecal sac throughout the lumbar spine secondary to the process of the epidural spac e. T12-L1: The thecal sac has a normal diameter. No evidence of disc bulge or protrusion. The neural foramina are patent bilaterally. L1-L2: The thecal sac has a normal diameter. No evidence of disc bulge or protrusion. The neural foramina are patent bilaterally. L2-L3: The thecal sac has a normal diameter. No evidence of disc bulge or protrusion. The neural foramina are patent bilaterally. L3-L4: The thecal sac has a normal diameter. No evidence of disc bulge or protrusion. The neural foramina are patent bilaterally. L4-L5: The thecal sac has a normal diameter. No evidence of disc bulge or protrusion. The neural foramina are patent bilaterally. L5-S1: The thecal sac has a normal diameter. No evidence of disc bulge or protrusion. The neural foramina are patent bilaterally. CONCLUSION: 1. Prominence of the epidural space throughout the thoracic and lumbar spine. It appears heterogeneo us. Given the patient's history, one could consider phlegmonous change without an abscess in the epid ural space. There appears to be moderate narrowing of the thecal sac throughout the lumbar spine seco ndary to the prominence of the epidural space. 2. The disc spaces appear normal. The bony structures appear normal. Electronically signed by: Filiberto Villarreal MD 01/02/2018 1:03 PM EDT
--- NOTE | 2018-01-02 13:17 | MR ---
EXAM DATE: 01/02/2018 10:58 AM EDT AGE/SEX: 22 years / Male INDICATIONS: Abscess. Fever with spinal tenderness. CLINICAL DATA: This is the patient's initial encounter. Patient reports that signs and symptoms have been present for 3 days and indicates a pain score of 3/10. MEDICAL/SURGICAL HISTORY: None. . Wrist surgery. COMPARISON: . TECHNIQUE: Multiplanar, multisequence MRI of the thoracic spine was performed without and with 6cc m l Gadavist (gadobutrol) contrast as a single exam dose. FINDINGS: Vertebrae: Normal vertebral body height. Homogeneous marrow signal. Alignment: Normal. Cord: Normal position and configuration.The cord appears normal. The epidural space especially poste riorly appears prominent throughout the thoracic spine. It appears somewhat heterogeneous. It demonst rates diffuse enhancement. A focal fluid collection/abscess in the epidural space is not seen T1-T2: The thecal sac has a normal diameter. No evidence of disc bulge or protrusion. T2-T3: The thecal sac has a normal diameter. No evidence of disc bulge or protrusion. T3-T4: The thecal sac has a normal diameter. No evidence of disc bulge or protrusion. T4-T5: The thecal sac has a normal diameter. No evidence of disc bulge or protrusion. T5-T6: The thecal sac has a normal diameter. No evidence of disc bulge or protrusion. T6-T7: The thecal sac has a normal diameter. No evidence of disc bulge or protrusion. T7-T8: The thecal sac has a normal diameter. No evidence of disc bulge or protrusion. T8-T9: The thecal sac has a normal diameter. No evidence of disc bulge or protrusion. T9-T10: The thecal sac has a normal diameter. No evidence of disc bulge or protrusion. T10-T11: The thecal sac has a normal diameter. No evidence of disc bulge or protrusion. T11-T12: The thecal sac has a normal diameter. No evidence of disc bulge or protrusion. T12-L1: The thecal sac has a normal diameter. No evidence of disc bulge or protrusion. CONCLUSION: 1. Enlargement of the epidural space with enhancement and heterogeneity raising the possibility of p hlegmon is change. Inflammatory/infectious etiologies could be considered. Meningitis could be consid ered. No focal abscess is seen. 2. The disc and vertebral bodies appear normal. Electronically signed by: Filiberto Villarreal MD 01/02/2018 1:16 PM EDT
[2018-01-02] MEDS: Morphine Inj 4 MG/ML Vial IV.PUSH PRN ×2 (13:38→18:56)
[2018-01-02] MEDS ORDERED: Gadobutrol PF 7.5 MMOL/7.5 ML Vial (for RAD) IV.SIG ONE (13:45)
--- NOTE | 2018-01-02 18:06 | P.CONID ---
History of Present Illness Service: ID Consult date: 01/02/18 Requesting Physician: Pennie Demarco Reason for Consult: headache/neck/back pain with fevers, thoracic/lumbar MRI shows enlargement Primary Care Provider: No Primary Care Physician Family Provider: No Primary Care Physician History of Present Illness: 22 yo male w/o past med history developped fever, neck/back pain sice Thursday progressively worse, + sore throat No siclk contacts Sp LP @ ER ([facility]) on 12/31 with ( WBC (lymphs) and increased RBC Today he woke up with new lumbar back ain MR showed enlargement of the epidural space with enhancement and heterogeneity , concern for infection/meningitis Pt rates pain 10/06 and it has not changed No weakness/ numbness in BLE, ambulates w/o issues Culture neg @ 24 hrs Fever resolved, MEYERS resolved and o/w he feels fine Pt is on Ceftriaxone Acyclovir and Vancomycin Review of Systems All other systems reviewed negative except as stated in HPI PMFSH - History History Provided By: Patient - Medical History Medical History: Medical History (Last Reviewed 01/02/18 @ 18:01 by Jyothi Llanos MD) Finger fracture, left - Surgical History Surgical History: Surgical History (Last Reviewed 01/02/18 @ 18:01 by Jyothi Llanos MD) Status post wrist surgery - Family History Family History: Family History (Last Reviewed 01/02/18 @ 18:01 by Jyothi Llanos MD) Other Family history normal - Social History I have reviewed the patient's Social History: Yes - Tobacco History Tobacco Use In Past 30 Days: Yes Smoking Status: Light tobacco smoker Tobacco Type: Cigarettes - Alcohol History How Often Do You Have a Drink Containing Alcohol: Monthly or less - Substance Use History Substance History: No History of Abuse, Past History - Travel History Recent Travel in the [place] Within the Last 8 Weeks: No Recent Travel Out of the Country Within the Last 8 Weeks: No - Immunization History Tetanus Immunization: <5 Years Tetanus Immunization Year if Known: 2014 Hx Influenza Vaccine This Season: No Medications and Allergies Active Medications: Active Medications Acetaminophen (Tylenol) 650 mg PO Q4H PRN PRN Reason: Temp > 100.4 Last Admin: 01/01/18 08:34 Dose: 650 mg Al Hydroxide/Mg Hydroxide (Milk Of Magnesia Liq) 30 ml PO Q12H PRN PRN Reason: Mild Constipation Bisacodyl (Dulcolax Supp) 10 mg RECTAL DAILY PRN PRN Reason: SEVERE CONSITIPATION Ceftriaxone Sodium 2,000 mg/ (Sodium Chloride) 100 mls @ 200 mls/hr IV.SIG Q12H [facility] Last Infusion: 01/02/18 14:50 Dose: Infused Sodium Chloride (Ns Inj) 1,000 mls @ 100 mls/hr IV.CONT .Q10H [facility] Last Admin: 01/02/18 17:01 Dose: Not Given Acyclovir Sodium 635 mg/ (Sodium Chloride) 112.7 mls @ 112.7 mls/hr IV.SIG Q8H [facility] Last Infusion: 01/02/18 17:01 Dose: Infused Vancomycin HCl 1,250 mg/ (Sodium Chloride) 262.5 mls @ 250 mls/hr IV.SIG Q8H [facility] Last Admin: 01/02/18 16:32 Dose: 250 mls/hr Lactulose (Lactulose Liq) 30 ml PO DAILY PRN PRN Reason: SEVERE CONSITIPATION Miscellaneous Information ([facility] Ordered Lab Info) 0 each OTHER ONCE ONE Stop: 01/03/18 15:46 Morphine Sulfate (Morphine Inj) 4 mg IV.PUSH Q4H PRN PRN Reason: pain 6-10 Last Admin: 01/02/18 13:38 Dose: 4 mg Ondansetron HCl (Zofran Inj) 4 mg IV.PUSH Q6H PRN PRN Reason: NAUSEA OR VOMITING Pharmacy Profile Note (Vancomycin Consult Pharmacy) 1 each OTHER UNSCH PRN PRN Reason: Pharmacy to dose Senna/Docusate Sodium (Ketty-Colace) 1 tab PO BID [facility] Last Admin: 01/02/18 08:32 Dose: Not Given Sennosides (Senokot) 17.2 mg PO Q12H PRN PRN Reason: Moderate Constipation Sodium Chloride (Ns Flush) 2 ml IV.FLUSH PRN PRN PRN Reason: FLUSH AFTER USING IV ACCESS Allergies Allergy/AdvReac Type Severity Reaction Status Date / Time No Known Allergies Allergy Verified 12/31/17 20:16 Home Medications Medication Instructions Recorded Confirmed Type amoxicillin-pot clavulanate 1 tab PO Q12H 12/31/17 12/31/17 History [Augmentin] Exam Vital signs: Vital Signs 01/01/18 19:33 01/02/18 00:00 01/02/18 04:41 Temperature 99.4 F 98.6 F 98.7 F Pulse Rate 79 68 81 Respiratory Rate 18 16 16 Blood Pressure 117/61 114/59 L 129/86 Pulse Oximetry 97 98 97 01/02/18 07:55 01/02/18 12:00 01/02/18 16:00 Temperature 98.3 F 98.7 F 98.7 F Pulse Rate 73 58 L 62 Respiratory Rate 16 16 16 Blood Pressure 115/58 L 109/69 106/60 Pulse Oximetry 99 100 97 Intake & Output 01/01/18 01/02/18 01/02/18 18:59 06:59 18:59 Intake Total 2495.4 / 2495.4 2655.2 / 2655.2 212.7 / 212.7 Balance 2495.4 / 2495.4 2655.2 / 2655.2 212.7 / 212.7 Weight 63.503 kg Intake: IV 1775.4 / 1775.4 2175.2 / 2175.2 212.7 / 212.7 NS Inj 1,000 ML @ 100 mls/hr IV 1200 / 1200 1700 / 1700 .CONT .Q10H [facility] Rx#:[id number] Zovirax Inj 635 MG In NS Inj 225.4 / 225.4 112.7 / 112.7 112.7 / 112.7 100 ML @ 112.7 mls/hr IV.SIG Q8H [facility] Rx#:[id number] Vancomycin Inj 1,250 MG In NS 250 / 250 262.5 / 262.5 Inj 250 ML @ 250 mls/hr IV.SIG Q12H [facility] Rx#:[id number] Rocephin Inj 2,000 MG In NS Inj 100 / 100 100 / 100 100 / 100 100 ML @ 200 mls/hr IV.SIG Q12H [facility] Rx#:[id number] Oral 720 / 720 480 / 480 Other: # Voids 2 1 Date of Last Bowel Movement 12/31/17 01/01/18 01/01/18 - Constitutional no acute distress, average body habitus - Routine HEENT Exam Head: Present: normocephalic, atraumatic Eye: Present: EOMI, PERRL ENT: Present: mucous membranes moist, dentition normal - Routine Neck Exam Present: supple, meningismus. Absent: full ROM, lymphadenopathy - Routine Chest/Breast/Axilla Exam Axillae: Absent: lymphadenopathy - Routine Respiratory Exam Present: CTA bilaterally. Absent: decreased breath sounds, respiratory distress , rhonchi, wheezes - Routine Cardiovascular Exam Present: RRR, S1, S2. Absent: murmur, gallop, rubs - Routine Abdominal Exam Present: soft, normoactive bowel sounds. Absent: tenderness, distended, organomegaly, mass - Routine Extremities Exam Present: full ROM. Absent: cyanosis, clubbing, edema - Routine Skin Exam Present: intact, dry, warm. Absent: rash - Routine Neurological Exam Present: alert, oriented X3, CN II-XII intact, moving all extremities, vision grossly intact, hearing grossly intact, normal speech - Routine Psychiatric Exam Present: normal affect, normal thought process, cooperative Results - Labs CBC & Chem 7: 01/02/18 08:35 01/02/18 08:35 Labs: Laboratory Results - last 24 hr 01/01/18 01/02/18 01/02/18 06:14 08:35 08:35 WBC 4.8 RBC 4.43 L Hgb 14.2 Hct 40.8 MCV 92.1 MCH 32.0 MCHC 34.7 RDW 12.2 Plt Count 180 MPV 8.9 Neut % (Auto) 58.5 Lymph % (Auto) 25.5 Stephens % (Auto) 11.8 H Eos % (Auto) 3.3 Baso % (Auto) 0.9 Neut # (Auto) 2.8 Lymph # (Auto) 1.2 Stephens # (Auto) 0.6 Eos # (Auto) 0.2 Baso # (Auto) 0.0 WBC Differential . Differential Comment Auto diff final Sodium 143 Potassium 3.8 Chloride 107 Carbon Dioxide 24.9 Anion Gap 11 BUN 7 Creatinine 0.90 Estimated GFR Greater than 89 Random Glucose 72 L Calcium 8.0 L Total Creatine Kinase 76 Vancomycin Trough 01/02/18 14:35 WBC RBC Hgb Hct MCV MCH MCHC RDW Plt Count MPV Neut % (Auto) Lymph % (Auto) Stephens % (Auto) Eos % (Auto) Baso % (Auto) Neut # (Auto) Lymph # (Auto) Stephens # (Auto) Eos # (Auto) Baso # (Auto) WBC Differential Differential Comment Sodium Potassium Chloride Carbon Dioxide Anion Gap BUN Creatinine Estimated GFR Random Glucose Calcium Total Creatine Kinase Vancomycin Trough 7.0 - Imaging Impressions Thoracic Spine MRI 01/02/18 09:53 CONCLUSION: 1. Enlargement of the epidural space with enhancement and heterogeneity raising the possibility of phlegmon is change. Inflammatory/infectious etiologies could be considered. Meningitis could be considered. No focal abscess is seen. 2. The disc and vertebral bodies appear normal. Lumbar Spine MRI 01/02/18 09:57 CONCLUSION: 1. Prominence of the epidural space throughout the thoracic and lumbar spine. It appears heterogeneous. Given the patient's history, one could consider phlegmonous change without an abscess in the epidural space. There appears to be moderate narrowing of the thecal sac throughout the lumbar spine secondary to the prominence of the epidural space. 2. The disc spaces appear normal. The bony structures appear normal. Assessment and Plan - Plan Febrile illness Mild case of aseptic meningitis case Back pain with some abnormal fingdings on MR post LP dc abx if clx remain negative dc acycllovir if HSV DNA remains negative Monitor back pain MR findigns dw radiologist case dw parents @ bs dw pt
[2018-01-02] MEDS ORDERED: ALPRAZolam 0.25 MG Tablet PO PRN (18:47)
[2018-01-02] MEDS ORDERED: HYDROmorphone PF Inj 2 MG/ML Vial IV.PUSH PRN (22:15)
[2018-01-03] MEDS: Sod Chloride 0.9% Inj 1,000 ML IV.CONT SCH ×2 (01:38→14:49)
[2018-01-03] MEDS: SODIUM CHLOR 0.9% IV.SIG SCH ×3 (01:38→17:21)
[2018-01-03] MEDS: ACYCLOVIR IV.SIG SCH ×3 (01:38→17:21)
[2018-01-03] MEDS: Morphine Inj 4 MG/ML Vial IV.PUSH PRN (05:22)
[2018-01-03 08:06] VITALS: O2SAT 98
--- NOTE | 2018-01-03 08:17 | P.PN ---
Subjective Interval history: Follow-up for headache, neck/back pain, body aches, suspected aseptic meningitis. Patient reports continued improvement overnight. He denies any further headache. He states his neck and back is still sore, however improving. Denies fevers or chills. He is ambulating his room without difficulty. He is tolerating oral intake, denies any nausea/vomiting, abdominal pain, or diarrhea. Denies any chest pain or shortness of breath. He wants to go home. Physical Exam Vital signs: Vital Signs 01/02/18 12:00 01/02/18 16:00 01/02/18 20:00 Temperature 98.7 F 98.7 F 99.4 F Pulse Rate 58 L 62 67 Respiratory Rate 16 16 18 Blood Pressure 109/69 106/60 107/60 Pulse Oximetry 100 97 96 01/03/18 00:12 01/03/18 03:51 01/03/18 06:00 Temperature 97.1 F L 97.5 F L Pulse Rate 63 71 Respiratory Rate 16 18 16 Blood Pressure 107/61 122/65 Pulse Oximetry 97 100 01/03/18 08:00 Temperature 97.8 F Pulse Rate 60 Respiratory Rate 16 Blood Pressure 111/72 Pulse Oximetry 98 Intake & Output 01/02/18 01/03/18 01/03/18 18:59 06:59 18:59 Intake Total 462.7 / 462.7 587.9 / 587.9 Output Total 850 / 850 Balance 462.7 / 462.7 -262.1 / -262.1 Intake: IV 462.7 / 462.7 587.9 / 587.9 Zovirax Inj 635 MG In NS Inj 112.7 / 112.7 225.4 / 225.4 100 ML @ 112.7 mls/hr IV.SIG Q8H [facility] Rx#:[id number] Vancomycin Inj 1,250 MG In NS 250 / 250 262.5 / 262.5 Inj 250 ML @ 250 mls/hr IV.SIG Q8H [facility] Rx#:[id number] Rocephin Inj 2,000 MG In NS Inj 100 / 100 100 / 100 100 ML @ 200 mls/hr IV.SIG Q12H [facility] Rx#:[id number] Output: Urine 850 / 850 Other: Date of Last Bowel Movement 01/01/18 Narrative: GENERAL: Well-nourished, well-developed young male patient in [facility]. SKIN: Warm and dry. No rash. HEENT: Normocephalic. Atraumatic. Pupils equal and round. Mucous membranes pink and moist. NECK: Cervical paraspinous muscles slightly tender to palpation, with +nuchal rigidity however much improved. CARDIOVASCULAR: Regular rate and rhythm. No murmur appreciated. RESPIRATORY: No accessory muscle use. Clear to auscultation. Breath sounds equal bilaterally. GASTROINTESTINAL: Abdomen soft, non-tender, nondistended. Normoactive bowel sounds x4. MUSCULOSKELETAL: No obvious deformities. Extremities without clubbing, cyanosis , or edema. Lower thoracic/upper lumbar region with very mild diffuse tenderness, overall improved. NEUROLOGICAL: Awake and alert. No obvious cranial nerve deficits. Motor grossly within normal limits. Moving all extremities spontaneously. Normal speech. PSYCHIATRIC: Appropriate mood and affect; insight and judgment normal. Results - Labs CBC & Chem 7: 01/02/18 08:35 01/02/18 08:35 Laboratory Results - last 24 hr 01/02/18 01/02/18 01/02/18 08:35 08:35 14:35 WBC 4.8 RBC 4.43 L Hgb 14.2 Hct 40.8 MCV 92.1 MCH 32.0 MCHC 34.7 RDW 12.2 Plt Count 180 MPV 8.9 Neut % (Auto) 58.5 Lymph % (Auto) 25.5 Craven % (Auto) 11.8 H Eos % (Auto) 3.3 Baso % (Auto) 0.9 Neut # (Auto) 2.8 Lymph # (Auto) 1.2 [place]ven # (Auto) 0.6 Eos # (Auto) 0.2 Baso # (Auto) 0.0 WBC Differential . Differential Comment Auto diff final Sodium 143 Potassium 3.8 Chloride 107 Carbon Dioxide 24.9 Anion Gap 11 BUN 7 Creatinine 0.90 Estimated GFR Greater than 89 Random Glucose 72 L Calcium 8.0 L Vancomycin Trough 7.0 Microbiology 12/31/17 22:00 Blood - Peripheral Aerobic Blood Culture - Preliminary No growth in 2 days 12/31/17 22:00 Blood - Peripheral Anaerobic Blood Culture - Preliminary No growth in 2 days 12/31/17 22:05 Blood - Peripheral Aerobic Blood Culture - Preliminary No growth in 2 days 12/31/17 22:05 Blood - Peripheral Anaerobic Blood Culture - Preliminary No growth in 2 days 12/31/17 20:30 Throat Group A Streptococcus Screen/Cult - Final No Beta Streptococci isolated. 12/31/17 22:30 Lumbar Puncture Gram Stain - Final 12/31/17 22:30 Lumbar Puncture CSF Culture - Preliminary No growth in 24 hours - Imaging Impressions Thoracic Spine MRI 01/02/18 09:53 CONCLUSION: 1. Enlargement of the epidural space with enhancement and heterogeneity raising the possibility of phlegmon is change. Inflammatory/infectious etiologies could be considered. Meningitis could be considered. No focal abscess is seen. 2. The disc and vertebral bodies appear normal. Lumbar Spine MRI 01/02/18 09:57 CONCLUSION: 1. Prominence of the epidural space throughout the thoracic and lumbar spine. It appears heterogeneous. Given the patient's history, one could consider phlegmonous change without an abscess in the epidural space. There appears to be moderate narrowing of the thecal sac throughout the lumbar spine secondary to the prominence of the epidural space. 2. The disc spaces appear normal. The bony structures appear normal. - Procedures 12/31/17lumbar puncture performed by ER physician Assessment and Plan - Plan 22-year-old male with no significant past medical history presents to the emergency department for evaluation of headache, neck stiffness, and fever/ chills. Headache/nuchal rigidity/body aches/fevers: Concern for meningitis -Head CT 12/31 reviewed and unremarkable -Status post lumbar puncture in the ED 12/31 -CSF studies/cultures so far are unremarkable -Continue empiric IV Rocephin/vancomycin/acyclovir -Blood cultures with no growth so far -Strep screen and influenza negative -Supportive treatment with IVF, antiemetics, IV morphine as needed -Monitor CBC -CPK wnl and CRP mildly elevated at 8.3 -Patient with bony point tenderness at lower thoracic/upper lumbar region, will check thoracic/lumbar spine MRI -Patient has remained afebrile, CBC improved, no signs of sepsis, symptoms much improved -Thoracic/Lumbar spine MRI showed Enlargement of the epidural space with enhancement and heterogeneity raising the possibility of phlegmon is change. Inflammatory/infectious etiologies could be considered. Meningitis could be considered. No focal abscess is seen. -Added IV Toradol 15mg q6h for pain/inflammation -Consult infectious disease, suspect aseptic meningitis, awaiting ID clearance prior to discharge DVT prophylaxis: Teds/SCDs; avoid chemical prophylaxis with recent LP Discharge Planning: Await infectious disease clearance prior to discharge.
[2018-01-03] MEDS: Vancomycin Inj 1,250 MG in Sodium Chlor 0.9% Inj 250 ML IV.SIG SCH ×2 (08:42→16:52)
[2018-01-03] MEDS: Senna/Docusate Sodium 8.6/50 MG Tablet PO SCH (08:46)
[2018-01-03] MEDS: Ketorolac Inj 30 MG/ML (IVP) Vial IV.PUSH SCH ×2 (11:15→17:21)
[2018-01-03] MEDS ORDERED: Pharmacy Ordered Lab Info OTHER ONE (15:45)
[2018-01-03 16:04] VITALS: BP 126/72; PULSE 59; RESP 18; TEMP 98.2
--- NOTE | 2018-01-03 16:17 | P.PNID ---
Subjective Remarks: pt is doing very well No headache back pain resolved as well adamantly wants to go home denies any personal h/o HSV no known HSV exposure CSF clx negative Antibiotics: acyclovir vanco CFTX Allergies/Adverse Reactions: Allergies No Known Allergies Allergy (Verified 12/31/17 20:16) Objective Vital Signs 01/02/18 20:00 01/03/18 00:12 01/03/18 03:51 Temperature 99.4 F 97.1 F L 97.5 F L Pulse Rate 67 63 71 Respiratory Rate 18 16 18 Blood Pressure 107/60 107/61 122/65 Pulse Oximetry 96 97 100 01/03/18 06:00 01/03/18 08:00 01/03/18 12:00 Temperature 97.8 F 98.3 F Pulse Rate 60 61 Respiratory Rate 16 16 16 Blood Pressure 111/72 110/60 Pulse Oximetry 98 98 01/03/18 16:00 Temperature 98.2 F Pulse Rate 59 L Respiratory Rate 18 Blood Pressure 126/72 Pulse Oximetry 98 Intake & Output 01/02/18 01/03/18 01/03/18 18:59 06:59 18:59 Intake Total 462.7 / 462.7 587.9 / 587.9 1475.2 / 1475.2 Output Total 850 / 850 Balance 462.7 / 462.7 -262.1 / -262.1 1475.2 / 1475.2 Intake: IV 462.7 / 462.7 587.9 / 587.9 1475.2 / 1475.2 NS Inj 1,000 ML @ 100 mls/hr IV 1000 / 1000 .CONT .Q10H [facility] Rx#:[id number] Zovirax Inj 635 MG In NS Inj 112.7 / 112.7 225.4 / 225.4 112.7 / 112.7 100 ML @ 112.7 mls/hr IV.SIG Q8H [facility] Rx#:[id number] Vancomycin Inj 1,250 MG In NS 250 / 250 262.5 / 262.5 262.5 / 262.5 Inj 250 ML @ 250 mls/hr IV.SIG Q8H [facility] Rx#:[id number] Rocephin Inj 2,000 MG In NS Inj 100 / 100 100 / 100 100 / 100 100 ML @ 200 mls/hr IV.SIG Q12H [facility] Rx#:[id number] Output: Urine 850 / 850 Other: Date of Last Bowel Movement 01/01/18 01/02/18 12/31/17 22:00 Blood - Peripheral Aerobic Blood Culture - Preliminary No growth in 3 days 12/31/17 22:00 Blood - Peripheral Anaerobic Blood Culture - Preliminary No growth in 3 days 12/31/17 22:05 Blood - Peripheral Aerobic Blood Culture - Preliminary No growth in 3 days 12/31/17 22:05 Blood - Peripheral Anaerobic Blood Culture - Preliminary No growth in 3 days 12/31/17 22:30 Lumbar Puncture Gram Stain - Final 12/31/17 22:30 Lumbar Puncture CSF Culture - Preliminary No growth in 48 hours 12/31/17 20:30 Throat Group A Streptococcus Screen/Cult - Final No Beta Streptococci isolated. 12/31/17 22:30 Cerebral Spinal Fluid - Lumbar Puncture Acid Fast Bacilli Smear - Final No acid fast bacilli seen 12/31/17 22:30 Cerebral Spinal Fluid - Lumbar Puncture Mycobacterial Culture - Pending 12/31/17 22:30 Cerebral Spinal Fluid - Lumbar Puncture Fungal Smear - Final No fungal elements seen 12/31/17 22:30 Cerebral Spinal Fluid - Lumbar Puncture Fungal Culture - Pending 12/31/17 20:30 Throat Group A Streptococcus Screen (MATEUSZ) - Final 12/31/17 20:30 Nasal Wash Influenza Types A,B Antigen - Final Negative for FLU A and B antigen Infection due to influenza A or B cannot be ruled out since the antigen present in the sample may be below the detection limit of the test. Lab - Hematology Results 01/02/18 08:35 WBC 4.8 RBC 4.43 L Hgb 14.2 Hct 40.8 MCV 92.1 MCH 32.0 MCHC 34.7 RDW 12.2 Plt Count 180 MPV 8.9 Neut % (Auto) 58.5 Lymph % (Auto) 25.5 Branch % (Auto) 11.8 H Eos % (Auto) 3.3 Baso % (Auto) 0.9 Neut # (Auto) 2.8 Lymph # (Auto) 1.2 Branch # (Auto) 0.6 Eos # (Auto) 0.2 Baso # (Auto) 0.0 WBC Differential . Differential Comment Auto diff final Lab - Chemistry Results 01/01/18 01/02/18 06:14 08:35 Sodium 143 Potassium 3.8 Chloride 107 Carbon Dioxide 24.9 Anion Gap 11 BUN 7 Creatinine 0.90 Estimated GFR Greater than 89 Random Glucose 72 L Calcium 8.0 L Total Creatine Kinase 76 C-Reactive Protein 8.30 H Imaging: ITS Impressions Chest X-Ray 12/31/17 20:12 CONCLUSION: No evidence of acute cardiopulmonary disease. Head CT 12/31/17 20:12 CONCLUSION: 1. Unremarkable noncontrast head CT. . Thoracic Spine MRI 01/02/18 09:53 CONCLUSION: 1. Enlargement of the epidural space with enhancement and heterogeneity raising the possibility of phlegmon is change. Inflammatory/infectious etiologies could be considered. Meningitis could be considered. No focal abscess is seen. 2. The disc and vertebral bodies appear normal. Lumbar Spine MRI 01/02/18 09:57 CONCLUSION: 1. Prominence of the epidural space throughout the thoracic and lumbar spine. It appears heterogeneous. Given the patient's history, one could consider phlegmonous change without an abscess in the epidural space. There appears to be moderate narrowing of the thecal sac throughout the lumbar spine secondary to the prominence of the epidural space. 2. The disc spaces appear normal. The bony structures appear normal. Physical Exam: GENERAL: NAD SKIN: Warm and dry. No rash HEAD: Atraumatic. Normocephalic. EYES: No scleral icterus. No injection or drainage. CARDIOVASCULAR: Regular rate and rhythm. RESPIRATORY: No accessory muscle use. Breathing unlaboured MUSCULOSKELETAL: Extremities without clubbing, cyanosis, or edema. NEUROLOGICAL: Awake and alert. No obvious cranial nerve deficits. Motor grossly within normal limits. Five out of 5 muscle strength in the arms and legs. Normal speech. PSYCHIATRIC: Appropriate mood and affect; insight and judgment normal. Assessment and Plan - Plan Febrile illness with heaaache - resolved Mild case of aseptic meningitis case ? WBC bordeline elevated RBC elevated but going down, najmaley traumatic tap Absolutely no clinical or lab e/o meningoencephalitis or bacterial meningitis Back pain with some abnormal fingdings on MR post LP: complete resolution PCR HSV is still P, but pt is very adamantly insists on dc. Pt epidiomiologically and clinially @ low risk for herpetic meningitis and again no e/o meningoencephalitis dc abx OK to dc pt Fu HSV PCR case dw Dr Mirta mercado pt
--- NOTE | 2018-01-03 16:46 | P.DS ---
Date of admission: 12/31/17 22:31 Primary care physician: No Primary Care Physician Brief History from admission: 22-year-old male with no significant past medical history presents to the emergency department for evaluation of headache, neck stiffness, and fever/ chills. The patient reports his symptoms started on Thursday and have progressively worsened. He complains of pain all over his spine and an exquisitely stiff neck that hurts to turn to the side or talk. He had a fever earlier today of 100.0. He denies any visual changes. Reports one episode of emesis last night. No chest pain or shortness of breath. No abdominal pain. DS: Diagnosis - Discharge Diagnosis (1) Aseptic meningitis Status: Acute DS: Summary Hospital Course: 22-year-old male with no significant past medical history presents to the emergency department for evaluation of headache, neck stiffness, and fever/ chills. Headache/nuchal rigidity/body aches/fevers: Suspected viral vs aseptic meningitis. Head CT 12/31 reviewed and unremarkable. Status post lumbar puncture in the ED 12/31. CSF studies/cultures so far are unremarkable with no growth. Given empiric IV Rocephin/vancomycin/acyclovir. Blood cultures with NGTD. Strep screen and influenza negative. Supportive treatment with IVF, antiemetics, IV morphine as needed. IV Toradol 15mg q6h for pain/inflammation. Monitored CBC, no leukocytosis. CPK wnl and CRP mildly elevated at 8.3. Patient with bony point tenderness at lower thoracic/upper lumbar region, thoracic/lumbar spine MRI showed Enlargement of the epidural space with enhancement and heterogeneity raising the possibility of phlegmon is change. Inflammatory/infectious etiologies could be considered. Meningitis could be considered. No focal abscess is seen. Consulted infectious disease, likely aseptic/viral meningitis. All studies/cultures negative so far. Patient has remained afebrile, CBC improved, no signs of sepsis, symptoms much improved. Dr. Llanos cleared patient for discharge however will need to follow up on HSV testing of CSF. Patient adamantly did not want to stay in hospital for results, ID cleared for discharge. - Time Spent with Patient Total time spent providing and/or coordinating discharge services: Greater than 30 minutes Exam Vital signs: Vital Signs 01/02/18 20:00 01/03/18 00:12 01/03/18 03:51 Temperature 99.4 F 97.1 F L 97.5 F L Pulse Rate 67 63 71 Respiratory Rate 18 16 18 Blood Pressure 107/60 107/61 122/65 Pulse Oximetry 96 97 100 01/03/18 06:00 01/03/18 08:00 01/03/18 12:00 Temperature 97.8 F 98.3 F Pulse Rate 60 61 Respiratory Rate 16 16 16 Blood Pressure 111/72 110/60 Pulse Oximetry 98 98 01/03/18 16:00 Temperature 98.2 F Pulse Rate 59 L Respiratory Rate 18 Blood Pressure 126/72 Pulse Oximetry 98 Intake & Output 01/02/18 01/03/18 01/03/18 18:59 06:59 18:59 Intake Total 462.7 / 462.7 587.9 / 587.9 1475.2 / 1475.2 Output Total 850 / 850 Balance 462.7 / 462.7 -262.1 / -262.1 1475.2 / 1475.2 Intake: IV 462.7 / 462.7 587.9 / 587.9 1475.2 / 1475.2 NS Inj 1,000 ML @ 100 mls/hr IV 1000 / 1000 .CONT .Q10H KATHIA Rx#:[id number] Zovirax Inj 635 MG In NS Inj 112.7 / 112.7 225.4 / 225.4 112.7 / 112.7 100 ML @ 112.7 mls/hr IV.SIG Q8H KATHIA Rx#:[id number] Vancomycin Inj 1,250 MG In NS 250 / 250 262.5 / 262.5 262.5 / 262.5 Inj 250 ML @ 250 mls/hr IV.SIG Q8H KATHIA Rx#:[id number] Rocephin Inj 2,000 MG In NS Inj 100 / 100 100 / 100 100 / 100 100 ML @ 200 mls/hr IV.SIG Q12H KATHIA Rx#:[id number] Output: Urine 850 / 850 Other: Date of Last Bowel Movement 01/01/18 01/02/18 Results Procedures completed during hospitalization: 12/31/17lumbar puncture performed by ER physician Labs on day of discharge: Preliminary micro results at discharge 12/31/17 22:00 Aerobic Blood Culture - Preliminary Blood - Peripheral No growth in 3 days Anaerobic Blood Culture - Preliminary No growth in 3 days 12/31/17 22:05 Aerobic Blood Culture - Preliminary Blood - Peripheral No growth in 3 days Anaerobic Blood Culture - Preliminary No growth in 3 days 12/31/17 22:30 CSF Culture - Preliminary Lumbar Puncture No growth in 48 hours - Impressions ITS Impressions Chest X-Ray 12/31/17 20:12 CONCLUSION: No evidence of acute cardiopulmonary disease. Head CT 12/31/17 20:12 CONCLUSION: 1. Unremarkable noncontrast head CT. . Thoracic Spine MRI 01/02/18 09:53 CONCLUSION: 1. Enlargement of the epidural space with enhancement and heterogeneity raising the possibility of phlegmon is change. Inflammatory/infectious etiologies could be considered. Meningitis could be considered. No focal abscess is seen. 2. The disc and vertebral bodies appear normal. Lumbar Spine MRI 01/02/18 09:57 CONCLUSION: 1. Prominence of the epidural space throughout the thoracic and lumbar spine. It appears heterogeneous. Given the patient's history, one could consider phlegmonous change without an abscess in the epidural space. There appears to be moderate narrowing of the thecal sac throughout the lumbar spine secondary to the prominence of the epidural space. 2. The disc spaces appear normal. The bony structures appear normal. Discharge Plan - Discharge Disposition Patient Disposition: 01 Discharge Home - Discharge Condition Condition: Stable - Discharge Order Discharge Orders: Discharge Order (Routine); Ordered 01/03/18 Ordered By: Pennie Demarco - Discharge Details Anticipated Discharge Date: 01/03/18 Discharge Comment: Ok to dicharge after dose of IV acyclovir. - Physicians Team Primary Care Provider: Primary Care Ever,Karen Attending Provider: Lisa Mercado Other Providers: Jyothi Llanos MD
== END 2018-01-03 19:07 | disposition home or self-care (01) ==
LOC: NEPC 19:55 → NEDA 19:55 → NEPFCDU 01-01 01:05
PROVIDERS: ADMIT Internal Medicine; ATTEND Internal Medicine

== ENCOUNTER 2018-04-10 19:02 | Inpatient (IN) ==
[2018-04-10] MEDS ORDERED: Diatrizoate Meglum/Diatrizoate Sod Liq 9 ML UDC PO ONE (19:42)
[2018-04-10] MEDS ORDERED: Morphine Sulfate Inj 2 MG/ML Vial IV.PUSH ONE (19:49)
[2018-04-10] MEDS ORDERED: Morphine Inj 4 MG/ML Vial IV.PUSH ONE ×2 (20:00→22:14)
[2018-04-10] MEDS ORDERED: Sodium Chlor 0.9% Inj 500 ML IV.SIG SCH (20:00)
[2018-04-10 20:15] LABS: Baso % (Auto) 0.2 % (0.0-2.0); Hematocrit 49.8 % (39.0-51.0); Hemoglobin 17.4 gm/dL (13.0-17.0); Lymph # (Auto) 1.3 th/mm3 (1.0-4.8); Lymph % (Auto) 6.6 % (9.0-44.0); Mean Corpuscular HGB Conc 34.9 % (32.0-36.0); Mean Corpuscular Hemoglobin 32.2 pg (27.0-34.0); Mean Corpuscular Volume 92.5 fL (80.0-100.0); Mean Platelet Volume 9.4 fL (7.0-11.0); Mono # (Auto) 1.4 th/mm3 (0.0-0.9); Mono % (Auto) 7.5 % (0.0-8.0); Neut # (Auto) 16.3 th/mm3 (1.8-7.7); Neut % (Auto) 85.7 % (16.0-70.0); Platelet Count 297 th/mm3 (150-450); Red Blood Count 5.39 mil/mm3 (4.50-5.90); Red Cell Distribution Width 12.5 % (11.6-17.2); White Blood Count 19.1 th/mm3 (4.0-11.0)
[2018-04-10 20:45] LABS: Alanine Aminotransferase 22 U/L (12-78)
[2018-04-10 20:47] LABS: Alkaline Phosphatase 75 U/L (45-117); Total Protein 8.4 g/dL (6.4-8.2)
[2018-04-10 20:51] LABS: Albumin 4.7 g/dL (3.4-5.0); Anion Gap 11 meq/L (5-15); Aspartate Aminotransferase 22 U/L (15-37); Blood Urea Nitrogen 11 mg/dL (7-18); Calcium 9.6 mg/dL (8.5-10.1); Carbon Dioxide 26.4 meq/L (21.0-32.0); Chloride 101 meq/L (98-107); Glomerular Filtration Rate Greater Than 89 mL/min (>89); Glucose,Random 103 mg/dL (74-106); Lipase 93 U/L (73-393); Potassium 3.7 meq/L (3.5-5.1); Sodium 138 meq/L (136-145)
[2018-04-10] MEDS ORDERED: Piperacil/Tazo 3.375 GM Premix 3.375 GM/50 ML PIGGYBACK IV.SIG ONE (22:08)
--- NOTE | 2018-04-10 22:16 | ED ---
HPI General Chief Complaint: Abdominal Pain Stated Complaint: side pain Time Seen by Provider: 04/10/18 19:21 Source: patient and family Mode of arrival: ambulatory Limitations: no limitations History of Present Illness HPI narrative: 22-year-old male that presents to the ED for evaluation of right lower quadrant abdominal pain. Patient has had right lower quadrant pain since this morning. Per patient nothing seems to make it better. Per patient he recently came from a cruise but denies any new foods or anything that could have caused this. Per patient he does finished a cruise about a week ago. He denies any medical issues. Takes no medications. Per patient he feels like he has no appetite and he has drank maybe 30 mL of fluid. Patient is not nauseous but just does not feel like he wants to eat. Per patient he is abdominal pain is on the right lower quadrant is about 8 out of 10. Nothing seems to make it better but touching it makes it worse. Denies any bowel movement or urinary issues. No surgeries on his abdomen ever. Denies take any blood thinners. Patient does have a history of a septic meningitis and he was admitted for that last year. Related Data Home Medications Medication Instructions Recorded Confirmed cannabidiol (CBD) extract 200 mg PO DAILY 04/11/18 04/11/18 Allergies Allergy/AdvReac Type Severity Reaction Status Date / Time No Known Allergies Allergy Verified 04/10/18 19:29 Review of Systems ROS: all other systems reviewed are negative [facility] Medical History Medical History History of viral meningitis (Acute) Finger fracture, left (Acute) Surgical History Surgical History Status post wrist surgery (Acute) Family History Family History Other Family history normal Social History Social History Substance History: No History of Abuse Second Hand Smoke Exposure: Yes Smoking Status: Current every day smoker Tobacco Type: E-Cigarettes How Often Do You Have a Drink Containing Alcohol: 2 to 3 times a week Recent Travel in [facility] within the Last 8 Weeks: No Recent Out of Country Travel within the Last 8 Weeks: No Immunization History Tetanus Immunization: Unsure Tetanus Immunization Year if Known: 2014 Exam Narrative Exam Narrative: GENERAL: Well-appearing but in some distress SKIN: Focused skin assessment warm/dry. HEAD: Atraumatic. Normocephalic. EYES: Pupils equal and round. No scleral icterus. No injection or drainage. ENT: No nasal bleeding or discharge. Mucous membranes pink and moist. Tongue is midline. No uvula deviation. NECK: Trachea midline. No JVD. CARDIOVASCULAR: Regular rate and rhythm. No murmur appreciated. RESPIRATORY: No accessory muscle use. Clear to auscultation. Breath sounds equal bilaterally. GASTROINTESTINAL: Abdomen soft, patient has a producible pain on the right lower quadrant with any palpation, nondistended. Hepatic and splenic margins not palpable. MUSCULOSKELETAL: No obvious deformities. No clubbing. No cyanosis. No edema. Full range of motion of the upper and lower extremities bilaterally. 2+ pulses bilaterally. NEUROLOGICAL: Awake and alert. No obvious cranial nerve deficits. Motor grossly within normal limits. Normal speech. PSYCHIATRIC: Appropriate mood and affect; insight and judgment normal. Course Initial Documented Vital Signs Temperature 98.3 F 04/10/18 19:12 Pulse Rate 107 H 04/10/18 19:12 Respiratory Rate 20 04/10/18 19:12 Blood Pressure 119/67 04/10/18 19:12 Pulse Oximetry 100 04/10/18 19:12 Last Documented Vital Signs Temperature 98.3 F 04/10/18 19:12 Pulse Rate 99 H 04/10/18 22:28 Respiratory Rate 15 04/10/18 22:28 Blood Pressure 113/56 L 04/10/18 22:28 Pulse Oximetry 99 04/10/18 22:28 Medical Decision Making JOSELO Attestation JOSELO supervised visit: Yes Attestation: I, Dr. Lowry, have reviewed the advance practice practitioner's documentation and am in agreement, met with the patient face to face, made the diagnosis, and the medical decision making was done by me. *My assessment and Findings: Right lower quadrant abdominal pain. Rule out appendicitis. [facility] Narrative Medical decision making narrative: 22-year-old male who presents to the ED for evaluation of abdominal pain. Patient was properly examined and was found to have signs and symptoms consistent appears to be possible appendicitis. Labs and imaging were ordered. My attending was made aware of findings and agrees with plan. Patient was given IV fluids, pain medication. Patient will be n.p.o. Labs and CT show what appears to be consistent with appendicitis. Patient was started on Zosyn as well. Patient currently n.p.o. My attending Dr. Lowry will speak with Dr. Dc who recommends admission for Surgery, NPO. Medical Screen Exam Complete: Yes Emergency Medical Condition: Yes Differential Diagnosis Differential Diagnosis: Appendicitis versus colitis versus gallbladder disease Medical Records Medical records reviewed: Yes I reviewed the patient's medical records. Lab Data Lab results reviewed: Yes I reviewed the patient's lab results. Result diagrams: 04/10/18 19:40 04/10/18 19:40 Lab Results 04/10/18 04/10/18 04/10/18 Range/Units 19:40 19:40 19:40 WBC 19.1 H (4.0-11.0) th/mm3 RBC 5.39 (4.50-5.90) mil/mm3 Hgb 17.4 H (13.0-17.0) gm/dL Hct 49.8 (39.0-51.0) % MCV 92.5 (80.0-100.0) fL MCH 32.2 (27.0-34.0) pg MCHC 34.9 (32.0-36.0) % RDW 12.5 (11.6-17.2) % Plt Count 297 (150-450) th/mm3 MPV 9.4 (7.0-11.0) fL Neut % (Auto) 85.7 H (16.0-70.0) % Lymph % (Auto) 6.6 L (9.0-44.0) % [place] % (Auto) 7.5 (0.0-8.0) % Eos % (Auto) 0.0 (0.0-4.0) % Baso % (Auto) 0.2 (0.0-2.0) % Neut # (Auto) 16.3 H (1.8-7.7) th/mm3 Lymph # (Auto) 1.3 (1.0-4.8) th/mm3 [place] # (Auto) 1.4 H (0.0-0.9) th/mm3 Eos # (Auto) 0.0 (0.0-0.4) th/mm3 Baso # (Auto) 0.0 (0.0-0.2) th/mm3 WBC Differential . Differential Comment Auto diff final Sodium 138 (136-145) meq/L Potassium 3.7 (3.5-5.1) meq/L Chloride 101 (98-107) meq/L Carbon Dioxide 26.4 (21.0-32.0) meq/L Anion Gap 11 (5-15) meq/L BUN 11 (7-18) mg/dL Creatinine 0.99 (0.60-1.30) mg/dL Estimated GFR Greater than 89 (>89) mL/min Random Glucose 103 (74-106) mg/dL Calcium 9.6 (8.5-10.1) mg/dL Magnesium 2.0 (1.5-2.5) mg/dL Total Bilirubin 0.8 (0.2-1.0) mg/dL AST 22 (15-37) U/L ALT 22 (12-78) U/L Alkaline Phosphatase 75 (45-117) U/L C-Reactive Protein 3.00 H Cancelled (0.00-0.30) mg/dL Total Protein 8.4 H (6.4-8.2) g/dL Albumin 4.7 (3.4-5.0) g/dL Lipase 93 (73-393) U/L Urine Color (Yellw/Straw) Urine Clarity (Clear) Urine pH (5.0-8.5) Ur Specific [place] (1.002-1.035) Urine Protein (Neg-Trace) mg/dL Urine Glucose (UA) (Negative) mg/dL Urine Ketones (Negative) mg/dL Urine Occult Blood (Negative) Urine Nitrate (Negative) Urine Bilirubin (Negative) Urine Urobilinogen (Less than 2) mg/dL Ur Leukocyte Esterase (Negative) Urine RBC (0-3) /hpf Urine WBC (0-5) /hpf Urine Mucus (Occasional) /lpf Micro UA Comment Ur Microscopic Review Urine Culture Comments 04/10/18 Range/Units 21:59 WBC (4.0-11.0) th/mm3 RBC (4.50-5.90) mil/mm3 Hgb (13.0-17.0) gm/dL Hct (39.0-51.0) % MCV (80.0-100.0) fL MCH (27.0-34.0) pg MCHC (32.0-36.0) % RDW (11.6-17.2) % Plt Count (150-450) th/mm3 MPV (7.0-11.0) fL Neut % (Auto) (16.0-70.0) % Lymph % (Auto) (9.0-44.0) % [place] % (Auto) (0.0-8.0) % Eos % (Auto) (0.0-4.0) % Baso % (Auto) (0.0-2.0) % Neut # (Auto) (1.8-7.7) th/mm3 Lymph # (Auto) (1.0-4.8) th/mm3 [place] # (Auto) (0.0-0.9) th/mm3 Eos # (Auto) (0.0-0.4) th/mm3 Baso # (Auto) (0.0-0.2) th/mm3 WBC Differential Differential Comment Sodium (136-145) meq/L Potassium (3.5-5.1) meq/L Chloride (98-107) meq/L Carbon Dioxide (21.0-32.0) meq/L Anion Gap (5-15) meq/L BUN (7-18) mg/dL Creatinine (0.60-1.30) mg/dL Estimated GFR (>89) mL/min Random Glucose (74-106) mg/dL Calcium (8.5-10.1) mg/dL Magnesium (1.5-2.5) mg/dL Total Bilirubin (0.2-1.0) mg/dL AST (15-37) U/L ALT (12-78) U/L Alkaline Phosphatase (45-117) U/L C-Reactive Protein (0.00-0.30) mg/dL Total Protein (6.4-8.2) g/dL Albumin (3.4-5.0) g/dL Lipase (73-393) U/L Urine Color Yellow (Yellw/Straw) Urine Clarity Hazy H (Clear) Urine pH 8.0 (5.0-8.5) Ur Specific [place] 1.051 H (1.002-1.035) Urine Protein 30 H (Neg-Trace) mg/dL Urine Glucose (UA) Negative (Negative) mg/dL Urine Ketones 80 or greater H (Negative) mg/dL Urine Occult Blood Negative (Negative) Urine Nitrate Negative (Negative) Urine Bilirubin Negative (Negative) Urine Urobilinogen Less than 2 (Less than 2) mg/dL Ur Leukocyte Esterase Negative (Negative) Urine RBC Less than 1 (0-3) /hpf Urine WBC 1 (0-5) /hpf Urine Mucus Few H (Occasional) /lpf Micro UA Comment Culture not ind Ur Microscopic Review Not Reportable Urine Culture Comments Culture not ind Imaging Data Attestation: I personally reviewed and interpreted this imaging study as follows : Radiologist's impression: Abdomen/Pelvis CT 04/10/18 19:42 CONCLUSION: 1. Abnormal appendix suspicious for acute appendicitis. As detailed above, it contains 2 appendicoliths, is fluid-filled and mildly dilated with suspected mild periappendiceal inflammation. 2. Remainder of the examination demonstrates no significant abnormality. Discharge Plan Discharge Disposition Patient Disposition: ED Admit(ED Internal Use Only) Discharge Order Discharge Orders: ED Use Only Admit Order (Routine); Ordered 04/10/18 Ordered By: Hank Lowry Discharge Details Diagnosis: Acute appendicitis Physicians Team ED Provider: Hank Lowry ED Midlevel Provider: Jose Recio Primary Care Provider: Primary Care Karen Curtis Attending Provider: Jarocho Dc Status ED Status: Left Department Discharge Information Discharge Date/Time: 04/11/18 01:03
[2018-04-10 22:28] LABS: Bilirubin,Urine Negative (Negative); Clarity,Urine Hazy (Clear); Color,Urine Yellow (Yellw/Straw); Glucose,Urine (UA) Negative (Negative); Leukocyte Esterase,Urine Negative (Negative); Mucus,Urine Few /lpf (Occasional); Nitrite,Urine Negative (Negative); Specific Gravity,Urine 1.051 (1.002-1.035)
--- NOTE | 2018-04-10 23:02 | CT ---
EXAM DATE: 04/10/2018 9:59 PM EST AGE/SEX: 22 years / Male INDICATIONS: Right lower quadrant pain. CLINICAL DATA: This is the patient's initial encounter. Patient reports that signs and symptoms have been present for 1 day and indicates a pain score of 7/10. MEDICAL/SURGICAL HISTORY: None. None. ORAL CONTRAST: Prescribed oral contrast ingested. RADIATION DOSE: 5.04 CTDI (mGy) COMPARISON: No prior exams available for comparison. TECHNIQUE: Multiple contiguous axial images were obtained through the abdomen and pelvis following b olus infusion of 95 ml Omnipaque 350 (iohexol) nonionic water-soluble contrast as a single exam dos e. Prescribed oral contrast ingested. Using automated exposure control and adjustment of the mA and/ or kV according to patient size, radiation dose was kept as low as reasonably achievable to obtain op timal diagnostic quality images. DICOM format image data is available electronically for review and comparison. FINDINGS: Lower chest: No acute abnormality is identified. Hepatobiliary: No focal liver lesion is identified. Hepatic vasculature demonstrates no abnormality. No calcified gallstones are present. Kidneys: No hydronephrosis, stone, or mass. Adrenal Glands: Within normal limits. Spleen: Within normal limits. Pancreas: Within normal limits. Vascular: The aorta is nonaneurysmal. Bowel/Mesentery: The stomach demonstrates no abnormality. Segments of the distal jejunum are mildly d ilated measuring up to 2.9 cm. The appendix contains 2 appendicoliths and measures up to 9 mm in diam eter and is filled with fluid. There is a suspected mild degree of inflammatory change in the appeara nce appendiceal fat. The colon demonstrates no acute abnormality. Right colon contains fluid. There i s no free intraperitoneal air or fluid. Abdominal Wall: No hernia is visualized. Retroperitoneum: No lymphadenopathy. Bladder: No wall thickening or mass. Reproductive: Within normal limits. Inguinal: No lymphadenopathy or hernia. Musculoskeletal: No acute osseous abnormality is identified. CONCLUSION: 1. Abnormal appendix suspicious for acute appendicitis. As detailed above, it contains 2 appendicoli ths, is fluid-filled and mildly dilated with suspected mild periappendiceal inflammation. 2. Remainder of the examination demonstrates no significant abnormality. Electronically signed by: Filiberto Bowens MD Board Certified Radiologist 04/10/2018 11:01 PM EST
[2018-04-10] MEDS ORDERED: Sod Chloride 0.9% Inj 1,000 ML IV.CONT SCH ×2 (23:30→23:45)
[2018-04-11] MEDS: Piperacil/Tazo 3.375 GM Premix 3.375 GM/50 ML PIGGYBACK IV.SIG SCH ×4 (00:04→23:45)
[2018-04-11] MEDS ORDERED: ALPRAZolam 0.5 MG Tablet PO PRN (01:37)
[2018-04-11] MEDS ORDERED: ALPRAZolam 0.5 MG Tablet PO SCH (01:45)
[2018-04-11] MEDS: Morphine Inj 4 MG/ML Vial IV.PUSH PRN ×5 (02:20→22:11)
[2018-04-11] MEDS ORDERED: Chlorhexidine Gluconate 2% 1 Pack (2 Cloths) TOPICAL ONE (03:11)
[2018-04-11] MEDS ORDERED: Metoprolol Tartrate 25 MG Tablet PO ONE (03:11)
[2018-04-11] MEDS ORDERED: Sodium Chlor 0.9% Inj 500 ML IV.SIG SCH (04:00)
--- NOTE | 2018-04-11 10:08 | MH ---
cc: Tolu Dominguez MD DATE OF ADMISSION: 04/10/2018 REASON FOR ADMISSION: Appendicitis. HISTORY OF PRESENT ILLNESS: Mr. Mueller very pleasant 22-year-old young man who presented to the emergency department with a 1-day history of right lower quadrant abdominal pain. The pain started on Dwight morning. Pain progressively got worse. He reports movement makes the pain worse. He has loss of appetite and has been unable to eat, and has only been drinking a little bit of fluid. He reports no obvious fever. He denies any previous abdominal pain like this. He denies any previous medical history other than he did have meningitis about a year ago. He was seen and evaluated in the ER and he was found to have appendicitis on imaging. PAST MEDICAL HISTORY: Previous meningitis. PAST SURGICAL HISTORY: He had surgery on his right hand for a fracture. MEDICATIONS: He takes no medications. ALLERGIES: HE HAS NO KNOWN DRUG ALLERGIES. SOCIAL HISTORY: Admits to social alcohol and cigarette use. He lives here locally. He is employed at the [employer]. FAMILY HISTORY: He reports 2 people in his family have had appendicitis. REVIEW OF SYSTEMS: Please see HPI. VITAL SIGNS: VITAL SIGNS: Temperature is 99, pulse is 100, blood pressure is 110 over 70, respiratory rate 20. GENERAL: This is a pleasant, young male accompanied by his parents, who appears uncomfortable and ill. HEENT: Pupils equal, round and reactive to light. Sclerae white. Oropharynx clear and moist. NECK: Supple. No masses. LUNGS: Clear to auscultation bilaterally. HEART: S1, S2. No murmur. ABDOMEN: Soft, tender in the bilateral lower quadrants. Positive Rovsing sign. Positive psoas sign. The patient holds his hand on the right side of his abdomen during the exam. EXTREMITIES: Free range of motion x 4. NEUROLOGIC: Alert and oriented x 3. LABORATORY DATA: White blood cell count 19, hemoglobin is 17, platelet count is 297. Electrolytes are all within normal limits. C-reactive protein is 3. Urinalysis is negative. CT scan of the abdomen and pelvis demonstrates appendicolith with a thickened appendix with edema all consistent with appendicitis. IMPRESSION: Acute appendicitis. PLAN: Risks and benefits of immediate appendectomy were discussed with the patient and his parents. Operating room was notified, and they will attempt to work the patient into the schedule. MD Jose Francisco Evans , 09:52 AM , 09:58 AM
[2018-04-11] MEDS ORDERED: Bupivacaine/Epinephrine Inj 0.25% 50 ML Vial ONE ×2 (10:52→12:40)
[2018-04-11] MEDS ORDERED: Sugammadex Inj 200 MG/2 ML Vial IV.PUSH ONE (12:10)
[2018-04-11] MEDS ORDERED: Naloxone Inj 0.4 MG/ML Vial IV.PUSH PRN (13:42)
[2018-04-11] MEDS ORDERED: Promethazine 25 MG Supp RECTAL PRN (13:42)
[2018-04-11] MEDS ORDERED: Post-op Orders (for Pharmacy) OTHER ONE (13:42)
[2018-04-11] MEDS ORDERED: Bisacodyl 10 MG Supp RECTAL PRN (13:42)
[2018-04-11] MEDS ORDERED: Morphine Inj 4 MG/ML Vial IV.PUSH PRN (13:42)
[2018-04-11] MEDS ORDERED: Naloxone Inj 0.4 MG/ML Vial ONE (13:51)
[2018-04-11] MEDS ORDERED: fentaNYL Citrate Inj 100 MCG/2 ML Ampul ONE (14:06)
--- NOTE | 2018-04-11 14:22 | MP ---
cc: Tolu Dominguez [facility] DATE OF OPERATION: 04/11/2018 PREOPERATIVE DIAGNOSIS: Acute appendicitis. POSTOPERATIVE DIAGNOSES: 1. Acute appendicitis. 2. Contained perforation. PROCEDURE PERFORMED: Laparoscopic appendectomy with drain placement. SURGEON: Tolu Dominguez MD PRODUCT HANDLER: MEGHAN Winkler student. ANESTHESIA: General endotracheal. COMPLICATIONS: None. INDICATIONS FOR PROCEDURE: Mr. Mueller is a pleasant 22-year-old gentleman who presented to the emergency department last night with a 24-hour history of right lower quadrant abdominal pain. He was worked up and found to have acute appendicitis. The patient was seen and evaluated this morning. Risks and benefits of appendectomy were discussed with him and his parents at the bedside, and they were agreeable. Operating room was notified, and the patient was worked into the schedule. INTRAOPERATIVE FINDINGS: The patient had a gangrenous distal two-thirds of his appendix with a contained perforation with the cecum and terminal ileum encasing the appendix. Pelvis had some purulent discolored fluid, which was rinsed out and a drain was placed. DETAILS: The patient was identified, brought to the operating room, placed supine on the operating table. After adequate general endotracheal anesthesia was achieved, the abdomen was prepped and draped in standard surgical fashion. Supraumbilical space was anesthetized with 0.25% Marcaine. Supraumbilical incision was made. Dissection was carried down through subcutaneous tissue to the midline fascia. Midline fascia was then incised sharply. A finger was then placed in the peritoneal cavity without difficulty. Blunt balloon trocar was inserted, and the abdomen was insufflated with 15 mmHg using CO2 gas. Next, two 5 mm trocars were placed in the lower midline under direct vision after anesthetizing the skin and subcutaneous tissue with 0.25% Marcaine. Attention was directed to the right lower quadrant where an obvious inflammatory process was occurring. The cecum was followed to its base where the proximal appendix was seen going down into an inflammatory phlegmon containing the medial cecum and the terminal ileum. Using blunt hydrodissection, this cavity was opened up. Some dark red fluid was identified. This was suctioned out immediately. The appendix was then seen. Appendix was seen doing a U-turn down below this area. It was carefully dissected out using blunt and hydrodissection. Once it was freed up completely, the Harmonic scalpel was used to take down the mesentery. Once the cecal base was achieved, 2-0 PDS Endoloops were placed on the proximal appendix. Two loops were used. Distal appendix was then transected, placed into an EndoCatch bag, and brought out through the supraumbilical port. The appendix was then inspected and sent to pathology for analysis. Next, the abdominal cavity was rinsed out with 1 L of warm saline solution. The cavity where the appendix was was copiously rinsed out until all purulent fluid was removed. The pelvis was also inspected, and there was a moderate amount of dark colored cloudy fluid down there, which was rinsed out as well. All irrigant was noted to be clear at the conclusion of the procedure. A 10-[place] round drain was then placed through the suprapubic port site. It was placed adjacent to the stump and down into the pelvis. It was secured with a 3-0 nylon suture. The cecum was returned to its anatomic position, and the drain was placed just underneath it. The omentum was then placed over the cecum. The abdomen was then desufflated, and all ports were removed under direct vision. Midline fascia was repaired with 0 Vicryl in a [id number] fashion. Skin was closed with 4-0 Vicryl. The patient tolerated the procedure well and was awakened and brought to the recovery room in stable condition. Tolu MD DIDIER Thrasher/ty , 01:51 PM , 01:57 PM
[2018-04-11] MEDS ORDERED: Naloxone Inj 0.4 MG/ML Vial IV.PUSH ONE (14:30)
[2018-04-11] MEDS ORDERED: *Meperidine Inj 25 MG/ML Vial PERIprocedural Use ONLY ONE (14:56)
[2018-04-11] MEDS: Senna/Docusate Sodium 8.6/50 MG Tablet PO SCH (21:03)
[2018-04-11] MEDS: Ketorolac Inj 30 MG/ML (IVP) Vial IV.PUSH PRN (21:03)
[2018-04-12] MEDS: Piperacil/Tazo 3.375 GM Premix 3.375 GM/50 ML PIGGYBACK IV.SIG SCH ×2 (07:16→15:02)
--- NOTE | 2018-04-12 08:01 | P.PNGS ---
Subjective Interval history: Resting in bed Has been OOB Passing gas Feels hungry Physical Exam Vital signs: Vital Signs 04/11/18 12:00 04/11/18 13:48 04/11/18 13:49 Temperature 98.8 F 98.4 F Pulse Rate 97 H 113 H Respiratory Rate 20 33 H Blood Pressure 108/62 87/53 L Pulse Oximetry 99 75 L 96 04/11/18 14:00 04/11/18 14:30 04/11/18 14:45 Temperature Pulse Rate 114 H 99 H 115 H Respiratory Rate 29 H 25 H 30 H Blood Pressure 96/54 L 101/58 L 91/55 L Pulse Oximetry 96 96 98 04/11/18 14:50 04/11/18 15:00 04/11/18 15:15 Temperature 99.1 F Pulse Rate 104 H 107 H Respiratory Rate 25 H 22 Blood Pressure 94/55 L 98/57 L Pulse Oximetry 95 94 L 94 L 04/11/18 16:00 04/11/18 20:21 04/11/18 22:13 Temperature 97.6 F 97.7 F Pulse Rate 107 H 99 H Respiratory Rate 18 18 18 Blood Pressure 94/53 L 100/60 Pulse Oximetry 95 94 L 04/11/18 23:24 04/12/18 04:20 Temperature 98.8 F 97.7 F Pulse Rate 98 H 81 Respiratory Rate 18 18 Blood Pressure 90/55 L 96/57 L Pulse Oximetry 96 94 L Intake & Output 04/11/18 04/12/18 04/12/18 18:59 06:59 18:59 Intake Total 1100 / 1100 1530 / 1530 Output Total 190 / 190 600 / 600 Balance 910 / 910 930 / 930 Weight 58.8 kg Intake: IV 100 / 100 1050 / 1050 LR 1000 mL Inj 1,000 ML @ 100 1000 / 1000 mls/hr IV.CONT .Q10H KATHIA Rx#: [id number] Zosyn 3.375 GM Premix 3.375 gm 100 / 100 50 / 50 In 50 ml @ 100 mls/hr IV.SIG Q8H KATHIA Rx#:[id number] Oral 480 / 480 Anesthesia Amount 1000 / 1000 Output: Urine 450 / 450 Estimated Blood Loss 10 / 10 Wound Drainage 180 / 180 150 / 150 # 1 Abdomen LYNDSAY Drain 180 / 180 150 / 150 Other: Date of Last Bowel Movement 04/10/18 04/10/18 # Bowel Movements 0 Narrative: ALert and awake Abd: soft; tender at incisions sites ; LYNDSAY with sanguinous drainage---non cloudy Results - Labs 04/10/18 19:40 04/10/18 19:40 - Imaging Imaging: ITS Impressions Abdomen/Pelvis CT 04/10/18 19:42 CONCLUSION: 1. Abnormal appendix suspicious for acute appendicitis. As detailed above, it contains 2 appendicoliths, is fluid-filled and mildly dilated with suspected mild periappendiceal inflammation. 2. Remainder of the examination demonstrates no significant abnormality. Assessment and Plan - Plan 22 year old male POD1 lap appy; contained perforation -Advance to regular diet--- encouraged smaller more frequent meals -Pain control -Will DC home with LYNDSAY drain--- follow up Thursday for removal -If tolerates PO--- can DC home this afternoon -Rx for pain and antibiotics on chart
[2018-04-12] MEDS: Senna/Docusate Sodium 8.6/50 MG Tablet PO SCH (12:14)
[2018-04-12] MEDS: Ketorolac Inj 30 MG/ML (IVP) Vial IV.PUSH PRN (12:16)
== END 2018-04-12 17:46 | disposition home or self-care (01) | DRG 339 ==
LOC: NEPC 19:02 → NEDA 23:34 → N06 04-11 00:42
PROVIDERS: ADMIT Surgery; ATTEND Surgery
PROC: LAPAPPY (ICD-10-PCS; 2018-04-11 12:32)
CPT/HCPCS: 74177; 80053; 81001; 83690; 83735; 85025; 86140; 88304; 90761; 90774; 90775; 90776; 90784; 94150; 94664; 96361; 96374; 96375; 96376; 99285; C8952; J0131; J1885; J2175; J2250; J2270; J2310; J2405; J2543; J3010; J7030; J7040; J7120; Q9963; Q9967